=== PATIENT | male | born 1945 | race Caucasian/White ===

== ENCOUNTER 2017-09-16 17:41 | Observation (INO) | payer MEDICARE ==
[~2017-09-16] VITALS: Ht 172.7 cm; Wt 125.6 kg
[~2017-09-16 17:41] MED LIST: ECOT81TA2 PO; INDO50 PO; INDO50CA PO; LISI-363 PO; TAB-TAB PO
[2017-09-16 17:46] VITALS: BP 162/77; PULSE 98; RESP 18; TEMP 97.8; O2SAT 95
[2017-09-16] MEDS ORDERED: ASPI-183 PO (18:04)
[2017-09-16] MEDS ORDERED: LISI-515 PO (18:04)
[2017-09-16] MEDS ORDERED: INDO25CA PO (18:04)
[2017-09-16] MEDS ORDERED: MULT-65 PO (18:04)
[2017-09-16] MEDS ORDERED: TAMS0.4C4 PO (18:04)
[2017-09-16] MEDS ORDERED: FINA5TAB2 PO (18:04)
[2017-09-16] MEDS ORDERED: SODIUM CHLORIDE 0.9% FLUSH 10 ML FLUSH IVF PRN (18:15)
[2017-09-16 18:30] VITALS: O2SAT 94
--- NOTE | 2017-09-16 18:31 | PD ---
HPI Chief Complaint: GI Complaint Time Seen by Provider: 18:10 Travel History International Travel<30 days: No Contact w/Intl Traveler<30days: No Traveled to known affect area: No History of Present Illness HPI Patient gives a history of having upper abdominal pain has been intermittent over the past 10 days or so. However today at about 1230 or so he started having epigastric area pain sharp, 8 out of 10, fairly consistent nonradiating, associated with nausea but without any vomiting or diarrhea. There is no apparent alleviating or aggravating factors. Patient denies any associated factors such as fever, rash, headache, neck pain, chest pain, back pain, flank pain. No known drug allergy Past medical history significant for cataract removal bilaterally, CVA, atrial fibrillation, hypertension, cardiac ablation, hernia repair. PFSH Past Medical History Arthritis: Yes Atrial Fibrillation: Yes (Ablation ) Heart Rhythm Problems: Yes (a fib) Cancer: No Cardiovascular Problems: Yes Cerebrovascular Accident: Yes Diminished Hearing: No Endocrine: No Genitourinary: No Hypertension: Yes Immune Disorder: No Musculoskeletal: Yes Neurologic: No Psychiatric: No Reproductive: No Respiratory: No Tetanus Vaccination: > 5 Years Influenza Vaccination: No Past Surgical History Abdominal Surgery: No Cardiac Surgery: No Ear Surgery: No Endocrine Surgery: No Eye Surgery: Yes (CATARACT REMOVAL BILATERALLY) Genitourinary Surgery: No Gynecologic Surgery: No Oral Surgery: Yes (MAJOR ORAL SURGERY WITH A TRACHEOTOMY) Thoracic Surgery: No Other Surgery: Yes (CARDIAC ABLATION, HERNIA REPAIR) Social History Alcohol Use: Yes (Rare) Tobacco Use: No Substance Use: No Allergies-Medications (Allergen,Severity, Reaction): Coded Allergies: No Known Allergies (Unverified Adverse Reaction, Unknown, 09/16/17) Reported Meds & Prescriptions Reported Meds & Active Scripts Active Reported Tamsulosin (Tamsulosin HCl) 0.4 Mg Cap 0.4 Mg PO BID Finasteride 5 Mg Tab 5 Mg PO DAILY Do not crush. Multi-Vitamin Daily (Multiple Vitamin) 1 Tab Tab 1 Tab PO DAILY Lisinopril 20 Mg Tab 20 Mg PO BID Indomethacin 25 Mg Cap 25 Mg PO DAILY Take with food, milk, or antacids to decrease stomach adverse effects. Aspirin 325 Mg Tab 325 Mg PO DAILY Review of Systems General / Constitutional: No: Fever Eyes: No: Visual changes HENT: No: Headaches Cardiovascular: No: Chest Pain or Discomfort Respiratory: No: Shortness of Breath Gastrointestinal: Positive: Abdominal Pain Genitourinary: No: Dysuria Musculoskeletal: No: Pain Skin: No Rash Neurologic: No: Weakness Psychiatric: No: Depression Endocrine: No: Polydipsia Hematologic/Lymphatic: No: Easy Bruising Physical Exam Narrative GENERAL: SKIN: Warm and dry. HEAD: Atraumatic. Normocephalic. EYES: Pupils equal and round. No scleral icterus. No injection or drainage. ENT: No nasal bleeding or discharge. Mucous membranes pink and moist. NECK: Trachea midline. No JVD. CARDIOVASCULAR: Regular rate and rhythm. RESPIRATORY: No accessory muscle use. Clear to auscultation. Breath sounds equal bilaterally. GASTROINTESTINAL: Abdomen soft, tenderness to percussion to right upper epigastric and left upper quadrant. However no rebound/guarding/rigidity, abdomen is obese but nondistended. MUSCULOSKELETAL: Extremities without clubbing, cyanosis, or edema. No obvious deformities. NEUROLOGICAL: Awake and alert. No obvious cranial nerve deficits. Motor grossly within normal limits. Five out of 5 muscle strength in the arms and legs. Normal speech. PSYCHIATRIC: Appropriate mood and affect; insight and judgment normal. Data Data Last Documented VS Vital Signs Date Time Temp Pulse Resp B/P (MAP) Pulse Ox O2 Delivery O2 Flow Rate FiO2 09/16/17 18:30 94 Room Air 09/16/17 17:46 97.8 98 18 162/77 (105) Orders Orders Electrocardiogram (09/16/17 18:10) B-Type Natriuretic Peptide (09/16/17 18:10) Ckmb (Isoenzyme) Profile (09/16/17 18:10) Complete Blood Count With Diff (09/16/17 18:10) Comprehensive Metabolic Panel (09/16/17 18:10) Prothrombin Time / Inr (Pt) (09/16/17 18:10) Act Partial Throm Time (Ptt) (09/16/17 18:10) Troponin I (09/16/17 18:10) Lipase (09/16/17 18:10) Chest, Single Ap (09/16/17 18:10) Ecg Monitoring (09/16/17 18:10) Iv Access Insert/Monitor (09/16/17 18:10) Oximetry (09/16/17 18:10) Sodium Chloride 0.9% Flush (Ns Flush) (09/16/17 18:15) Ct Abd/Pel W Iv Contrast(Rout) (09/16/17 18:55) CKMB (09/16/17 18:30) CKMB% (09/16/17 18:30) Iohexol 350 Inj (Omnipaque 350 Inj) (09/16/17 20:06) Ckmb (Isoenzyme) Profile (09/16/17 20:14) Troponin I (09/16/17 20:14) NPO (09/16/17 20:40) Morphine Inj (Morphine Inj) (09/16/17 20:45) Ondansetron Inj (Zofran Inj) (09/16/17 20:45) Metronidazole 500 Mg Inj (Flagyl 500 Mg (09/16/17 20:45) Sodium Chlor 0.9% 1000 Ml Inj (Ns 1000 M (09/16/17 20:40) Piperacil-Tazo 3.375 Gm Premix (Zosyn 3. (09/16/17 20:45) Labs Laboratory Tests Test 09/16/17 18:30 09/16/17 20:24 White Blood Count 14.6 TH/MM3 Red Blood Count 4.98 MIL/MM3 Hemoglobin 15.1 GM/DL Hematocrit 46.2 % Mean Corpuscular Volume 92.8 FL Mean Corpuscular Hemoglobin 30.4 PG Mean Corpuscular Hemoglobin Concent 32.7 % Red Cell Distribution Width 12.4 % Platelet Count 215 TH/MM3 Mean Platelet Volume 7.6 FL Neutrophils (%) (Auto) 84.9 % Lymphocytes (%) (Auto) 3.5 % Monocytes (%) (Auto) 7.4 % Eosinophils (%) (Auto) 0.8 % Basophils (%) (Auto) 3.4 % Neutrophils # (Auto) 12.4 TH/MM3 Lymphocytes # (Auto) 0.5 TH/MM3 Monocytes # (Auto) 1.1 TH/MM3 Eosinophils # (Auto) 0.1 TH/MM3 Basophils # (Auto) 0.5 TH/MM3 CBC Comment AUTO DIFF Differential Total Cells Counted 100 Neutrophils % (Manual) 77 % Band Neutrophils % 18 % Lymphocytes % 2 % Monocytes % 3 % Neutrophils # (Manual) 13.9 TH/MM3 Differential Comment FINAL DIFF MANUAL Platelet Estimate NORMAL Platelet Morphology Comment NORMAL Red Cell Morphology Comment NORMAL Prothrombin Time 10.2 SEC Prothromb Time International Ratio 1.0 RATIO Activated Partial Thromboplast Time 28.1 SEC Blood Urea Nitrogen 28 MG/DL Creatinine 1.50 MG/DL Random Glucose 137 MG/DL Total Protein 7.0 GM/DL Albumin 3.6 GM/DL Calcium Level 8.8 MG/DL Alkaline Phosphatase 139 U/L Aspartate Amino Transf (AST/SGOT) 212 U/L Alanine Aminotransferase (ALT/SGPT) 281 U/L Total Bilirubin 1.2 MG/DL Sodium Level 140 MEQ/L Potassium Level 3.8 MEQ/L Chloride Level 106 MEQ/L Carbon Dioxide Level 28.2 MEQ/L Anion Gap 6 MEQ/L Estimat Glomerular Filtration Rate 46 ML/MIN Total Creatine Kinase 141 U/L 127 U/L Creatine Kinase MB 4.6 NG/ML Troponin I LESS THAN 0.02 NG/ML LESS THAN 0.02 NG/ML B-Type Natriuretic Peptide LESS THAN 2 PG/ML Lipase 98907 U/L MDM Medical Decision Making Medical Screen Exam Complete: Yes Emergency Medical Condition: Yes Medical Record Reviewed: Yes Interpretation(s) EKG shows sinus rhythm, 97 bpm, right bundle branch block, no evidence of sgarbossa's criteria present Differential Diagnosis Atypical STEMI versus pancreatitis versus hepatitis versus cholecystitis versus cholelithiasis Narrative Course CBC shows leukocytosis of 15,000 with 85% neutrophils and 18% bandemia Coagulation profile is within normal limits Patient's electrolytes are within normal limits however the patient's bilirubin is elevated at 1.2, AST is 212 ALT is 281 alk phos is 139 all elevated first set of cardiac enzymes are negative and lipase is elevated at 12,344 CT abdomen and pelvis shows the patient has acute pancreatitis/duodenitis, along with cholelithiasis however based on the CAT scan no evidence of cholecystitis.... Most likely based on the laboratory data and the finding of cholelithiasis this patient probably has pancreatitis secondary to cholelithiasis Physician Communication Physician Communication Call made out to GI on-call, Dr. ESTRADA TO MAKE AWARE, [facility] ADMIT [place] and order an MRCP to evaluate for stones Diagnosis Primary Impression: Acute gallstone pancreatitis Admitting Information Admitting Physician Requests: Admit Jaleel Saucedo MD Sep 16, 2017 18:31
[2017-09-16 18:41] LABS: AUTOMATED NEUTROPHIL # 12.4 TH/MM3 (1.8-7.7); BASOPHIL # 0.5 TH/MM3 (0-0.2); BASOPHIL % 3.4 % (0.0-2.0); EOSINOPHIL # 0.1 TH/MM3 (0-0.4); EOSINOPHIL % 0.8 % (0.0-4.0); HEMATOCRIT 46.2 % (39.0-51.0); HEMOGLOBIN 15.1 GM/DL (13.0-17.0); LYMPH % 3.5 % (9.0-44.0); LYMPHOCYTE # 0.5 TH/MM3 (1.0-4.8); MEAN CELL VOLUME 92.8 FL (80.0-100.0); MEAN CORPUSCULAR HEMOGLOBIN 30.4 PG (27.0-34.0); MEAN CORPUSCULAR HGB CONC 32.7 % (32.0-36.0); MEAN PLATELET VOLUME 7.6 FL (7.0-11.0); MONO % 7.4 % (0.0-8.0); MONOCYTE # 1.1 TH/MM3 (0-0.9); NEUT % 84.9 % (16.0-70.0); PLATELET COUNT 215 TH/MM3 (150-450); RED BLOOD COUNT 4.98 MIL/MM3 (4.50-5.90); RED CELL DISTRIBUTION WIDTH 12.4 % (11.6-17.2); WHITE BLOOD COUNT 14.6 TH/MM3 (4.0-11.0)
--- NOTE | 2017-09-16 18:48 | RADRPT ---
EXAM DATE/TIME: 09/16/2017 18:37 [facility] COMPARISON: CHEST SINGLE AP, September 12, 2014, 9:31. INDICATIONS : Chest pain. MEDICAL HISTORY : None. SURGICAL HISTORY : None. ENCOUNTER: Initial ACUITY: 1 day PAIN SCORE: 4/10 LOCATION: Bilateral chest FINDINGS: A single view of the chest demonstrates the lungs to be symmetrically aerated without evidence of mas s, infiltrate or effusion. The cardiomediastinal contours are unremarkable. Osseous structures are intact. CONCLUSION: No evidence of acute cardiopulmonary disease. Zoran Guerrero MD on September 16, 2017 at 18:45 Board Certified Radiologist. This report was verified electronically.
[2017-09-16 18:53] LABS: CHLORIDE 106 MEQ/L (98-107); SODIUM (NA) 140 MEQ/L (136-145)
[2017-09-16 18:57] LABS: CALCIUM 8.8 MG/DL (8.5-10.1); PROTHROMBIN TIME - PATIENT 10.2 SEC (9.8-11.6)
[2017-09-16 18:58] LABS: ALBUMIN 3.6 GM/DL (3.4-5.0); BICARBONATE 28.2 MEQ/L (21.0-32.0); BLOOD UREA NITROGEN 28 MG/DL (7-18); GLUCOSE,RANDOM 137 MG/DL (74-106)
[2017-09-16 19:01] LABS: ALT (GPT) 281 U/L (12-78); AST (GOT) 212 U/L (15-37); GLOMERULAR FILTRATION RATE 46 ML/MIN (>89)
[2017-09-16 19:03] LABS: TOTAL BILIRUBIN ADULT 1.2 MG/DL (0.2-1.0)
[2017-09-16 19:04] LABS: ALKALINE PHOSPHATASE 139 U/L (45-117)
[2017-09-16 19:05] LABS: BANDS 18 % (0-6); LYMPHOCYTES 2 % (9-44); MONOCYTES 3 % (0-8); NEUTROPHIL # MANUAL DIFF 13.9 TH/MM3 (1.8-7.7); POLYS (SEG NEUTROPHILS) 77 % (16-70)
[2017-09-16 19:06] LABS: TROPONIN I LESS THAN 0.02 NG/ML (0.02-0.05)
[2017-09-16] MEDS ORDERED: IOHEXOL 350 MG/ML 10 ML VIAL (for RAD DIAG) IVCONTRAST ONE (20:06)
--- NOTE | 2017-09-16 20:26 | RADRPT ---
EXAM DATE/TIME: 09/16/2017 19:46 [facility] COMPARISON: CT PULMONARY ANGIOGRAM, September 12, 2014, 10:34. INDICATIONS : Upper abdominal pain. IV CONTRAST: 90 cc Omnipaque 350 (iohexol) IV ORAL CONTRAST: No oral contrast ingested. RADIATION DOSE: 24.53 CTDIvol (mGy) MEDICAL HISTORY : Cardiovascular disease. Cerebrovascular disease. Hypertension. SURGICAL HISTORY : Orthopedic surgery. Hernia repair. Cardiac ablation. ENCOUNTER: Initial ACUITY: 1 day PAIN SCALE: 7/10 LOCATION: upper quadrant TECHNIQUE: Volumetric scanning of the abdomen and pelvis was performed. Using automated exposure control and ad justment of the mA and/or kV according to patient size, radiation dose was kept as low as reasonably achievable to obtain optimal diagnostic quality images. DICOM format image data is available electro nically for review and comparison. FINDINGS: There is edema around the pancreatic head and also the duodenum compatible with pancreatitis and/or d uodenitis. No organized or drainable fluid. Numerous stones are seen in the gallbladder ranging betwe en 5 and 18 mm in size. There is no duct stone or ductal dilatation. Liver is fatty infiltrated. Spleen and adrenal glands are normal. There are a few scattered benign cysts of both kidneys. No ston es or obstructive uropathy demonstrated. No obstruction or acute inflammatory changes are seen of the gastrointestinal tract. There is a left inguinal fat-containing hernia. Eventration of the right hemidiaphragm again noted. There is mild lung base atelectasis, mostly on th e left. CONCLUSION: 1. Uncomplicated acute pancreatitis/duodenitis. 2. Cholelithiasis without evidence of cholecystitis or biliary obstruction. No acute choledocholithia sis seen. 3. Fatty liver. Zoran Guerrero MD on September 16, 2017 at 20:20 Board Certified Radiologist. This report was verified electronically.
[2017-09-16] MEDS ORDERED: SODIUM CHLOR 0.9% 1000 ML INJ 1,000 ML IV SCH (20:40)
[2017-09-16] MEDS ORDERED: ONDANSETRON HCL 4 MG/2 ML VIAL IVP ONE (20:45)
[2017-09-16] MEDS ORDERED: metroNIDAZOLE 500 MG INJ 100 ML IV ONE (20:45)
[2017-09-16] MEDS ORDERED: PIPERACIL-TAZO 3.375 GM PREMIX 50 ML IV ONE (20:45)
[2017-09-16] MEDS ORDERED: MORPHINE SULFATE 4 MG/ML INJ IV PUSH ONE (20:45)
[2017-09-16 20:46] LABS: TROPONIN I LESS THAN 0.02 NG/ML (0.02-0.05)
[2017-09-16] MEDS ORDERED: NALOXONE HCL 0.4 MG/ML AMP IV PUSH PRN (21:30)
[2017-09-16] MEDS ORDERED: DEXTROSE 50% IN WATER 50 ML VIAL(D50) IV PUSH PRN (21:30)
[2017-09-16] MEDS ORDERED: GLUCAGON 1 MG/ML VIAL OTHER PRN (21:30)
[2017-09-16] MEDS ORDERED: LACTULOSE SYRUP 20 GM/30 ML CUP PO PRN (21:30)
[2017-09-16] MEDS ORDERED: MAGNESIUM HYDROXIDE SUSP 30 ML CUP PO PRN (21:30)
[2017-09-16] MEDS ORDERED: SENNOSIDES 8.6 MG TAB PO PRN (21:30)
[2017-09-16] MEDS ORDERED: BISACODYL 10 MG SUPP RECTAL PRN (21:30)
[2017-09-16] MEDS ORDERED: SODIUM CHLORIDE 0.9% FLUSH 10 ML FLUSH IV FLUSH PRN (21:30)
[2017-09-16] MEDS: SODIUM CHLOR 0.9% 1000 ML INJ 1,000 ML IV SCH (21:34)
[2017-09-16 21:35] VITALS: BP 131/67; PULSE 101; RESP 20; O2SAT 93
[2017-09-16] MEDS: MORPHINE SULFATE 2 MG/ML SYRINGE IV PUSH PRN (22:31)
[2017-09-16 22:35] VITALS: BP 109/58; PULSE 98; RESP 20; O2SAT 93
[2017-09-17] VITALS: BP 129/72; PULSE 90; RESP 22; TEMP 97.2; O2SAT 96
[2017-09-17] MEDS ORDERED: ONDANSETRON HCL 4 MG/2 ML VIAL IVP PRN
[2017-09-17 00:10] VITALS: BP 106/63; TEMP 99.1
[2017-09-17] MEDS: MORPHINE SULFATE 2 MG/ML SYRINGE IV PUSH PRN ×2 (03:52→09:38)
[2017-09-17] MEDS ORDERED: HYDROmorphone HCL PF 0.5 MG/0.5 ML SYRINGE IV PUSH ONE (04:45)
[2017-09-17] MEDS: SODIUM CHLOR 0.9% 1000 ML INJ 1,000 ML IV SCH ×4 (04:56→20:42)
[2017-09-17 05:31] VITALS: BP 129/72; PULSE 90; RESP 22; TEMP 97.2; O2SAT 96
[2017-09-17 05:57] LABS: AUTOMATED NEUTROPHIL # 9.8 TH/MM3 (1.8-7.7); BASOPHIL # 0.1 TH/MM3 (0-0.2); BASOPHIL % 0.7 % (0.0-2.0); EOSINOPHIL # 0.3 TH/MM3 (0-0.4); EOSINOPHIL % 2.4 % (0.0-4.0); HEMATOCRIT 41.9 % (39.0-51.0); HEMOGLOBIN 14.2 GM/DL (13.0-17.0); LYMPH % 4.3 % (9.0-44.0); LYMPHOCYTE # 0.5 TH/MM3 (1.0-4.8); MEAN CELL VOLUME 91.3 FL (80.0-100.0); MEAN CORPUSCULAR HEMOGLOBIN 30.9 PG (27.0-34.0); MEAN CORPUSCULAR HGB CONC 33.8 % (32.0-36.0); MEAN PLATELET VOLUME 7.6 FL (7.0-11.0); MONOCYTE # 0.9 TH/MM3 (0-0.9); NEUT % 84.6 % (16.0-70.0); PLATELET COUNT 208 TH/MM3 (150-450); RED BLOOD COUNT 4.59 MIL/MM3 (4.50-5.90); RED CELL DISTRIBUTION WIDTH 12.8 % (11.6-17.2); WHITE BLOOD COUNT 11.6 TH/MM3 (4.0-11.0)
[2017-09-17 06:27] LABS: CHLORIDE 107 MEQ/L (98-107); SODIUM (NA) 140 MEQ/L (136-145)
[2017-09-17 06:40] LABS: ALBUMIN 3.3 GM/DL (3.4-5.0); GLUCOSE,RANDOM 123 MG/DL (74-106)
[2017-09-17 06:41] LABS: BICARBONATE 30.1 MEQ/L (21.0-32.0); BLOOD UREA NITROGEN 24 MG/DL (7-18); CALCIUM 8.1 MG/DL (8.5-10.1)
[2017-09-17 06:43] LABS: ALT (GPT) 237 U/L (12-78); AST (GOT) 104 U/L (15-37); GLOMERULAR FILTRATION RATE 55 ML/MIN (>89)
[2017-09-17 06:45] LABS: TOTAL BILIRUBIN ADULT 1.2 MG/DL (0.2-1.0); TOTAL PROTEIN 6.4 GM/DL (6.4-8.2)
[2017-09-17 06:46] LABS: ALKALINE PHOSPHATASE 109 U/L (45-117)
[2017-09-17] MEDS: INSULIN ASPART SUPPLEMENTAL SCALE SQ SCH ×4 (07:33→20:39)
[2017-09-17 08:00] VITALS: BP 156/88; PULSE 110; RESP 20; TEMP 97.5; O2SAT 95
[2017-09-17] MEDS: SODIUM CHLORIDE 0.9% FLUSH 10 ML FLUSH IV FLUSH SCH ×2 (08:36→20:19)
[2017-09-17] MEDS: DOCUSATE SODIUM 50 MG/SENNA 8.6 MG TAB PO SCH ×2 (09:00→20:35)
[2017-09-17] MEDS ORDERED: HYDROmorphone HCL PF 0.5 MG/0.5 ML SYRINGE IV PUSH PRN (10:00)
--- NOTE | 2017-09-17 10:20 | HHI.HP ---
[facility] Justin Kaye MD Admission Diagnosis GALLSTONE PANCREATITIS Diagnoses: (1) Abdominal pain Diagnosis: Principal (2) Pancreatitis Diagnosis: Principal Chief Complaint: Abdominal pain Travel History International Travel<30 Days: No Contact w/Intl Traveler <30 Da: No Traveled to Known Affected Are: No History of Present Illness 71-year-old male with known history of hypertension, benign prostatic hypertrophy, history of atrial fibrillation status post ablation who presented to the emergency department because of abdominal pain. Patient states that his normal state of health until yesterday when he was driving around [employer] and approximately at 1230 he started developing pain in his upper abdomen which progressively got worse throughout the day. He did drive home and lay down without any improvement. He states that the pain is located in the epigastric region without any radiation to his back, flank, lower abdomen. He indicates that the pain was a 10/10 on a pain scale. He did have some nausea but without any vomiting. Denied any fever, chills, urinary symptoms, diarrhea, constipation. Patient came to emergency department and was found to have acute pancreatitis by laboratory studies and CT scan. Patient was recommended observation the hospital for further management. Review of Systems Gastrointestinal: COMPLAINS OF: Abdominal pain, Nausea Except as stated in HPI: all other systems reviewed are Neg Past Family Social History Past Medical History Hypertension History of atrial fibrillation status post ablation Benign prostatic hypertrophy Arthritis History of DVT History of CVA Past Surgical History Cardiac ablation for atrial fibrillation Bilateral hip replacement Right knee replacement Right inguinal hernia repair Lumbar spinal stenosis surgery Reported Medications Reported Meds & Active Scripts Active Reported Tamsulosin (Tamsulosin HCl) 0.4 Mg Cap 0.4 Mg PO BID Finasteride 5 Mg Tab 5 Mg PO DAILY Do not crush. Multi-Vitamin Daily (Multiple Vitamin) 1 Tab Tab 1 Tab PO DAILY Lisinopril 20 Mg Tab 20 Mg PO BID Indomethacin 25 Mg Cap 25 Mg PO DAILY Take with food, milk, or antacids to decrease stomach adverse effects. Aspirin 325 Mg Tab 325 Mg PO DAILY Allergies: Coded Allergies: No Known Allergies (Unverified Adverse Reaction, Unknown, 09/16/17) Family History Reviewed and significant for both mother and father with heart disease. No indication of any lung disease, kidney disease, cancer, seizure, stroke Social History Patient denies any tobacco or illicit drugs. Does drink wine occasionally. Denies any illicit drug Physical Exam Vital Signs Vital Signs Date Time Temp Pulse Resp B/P (MAP) Pulse Ox O2 Delivery O2 Flow Rate FiO2 09/17/17 09:44 17 09/17/17 08:00 97.5 110 20 156/88 (110) 95 09/17/17 05:31 97.2 90 22 129/72 (91) 96 09/17/17 00:10 99.1 94 20 106/63 (77) 96 Nasal Cannula 2.00 09/17/17 00:00 97.2 90 22 129/72 (91) 96 09/16/17 22:38 20 09/16/17 22:35 98 20 109/58 (75) 93 Nasal Cannula 2.00 09/16/17 21:35 101 20 131/67 (88) 93 Room Air 09/16/17 18:30 94 Room Air 09/16/17 17:46 97.8 98 18 162/77 (105) 95 Physical Exam GENERAL: Well-developed, well-nourished, in no acute distress. alert and orientated HEENT: Head is normocephalic without any lesions or masses noted. Facial features are symmetric. Eyes: Pupils equal round reactive to light. Extraocular muscles are intact. Conjunctivae were clear. Oropharyngeal: Pharynx without any erythema edema. Tongue is midline without deviation. Buccal mucosa is moist without any masses or lesions NECK: Supple without any masses. Trachea midline no deviation. No JVD, no bruits are appreciated CARDIAC: Regular rhythm, regular rate. S1/S2 are heard. No murmurs gallops or rubs. LUNGS: Clear to auscultation bilaterally. No wheeze, rhonchi or rales. No use of accessory muscles on inspiration or expiration. ABDOMEN: Soft, tenderness noted in the right upper quadrant and epigastric region. Nondistended. Bowel sounds heard in all 4 quadrants. No organomegaly or masses. Negative rebound, negative guarding EXTREMITIES: No edema, pulses are equal bilaterally. No cyanosis or clubbing NEUROLOGY: Mood and affect appear appropriate. Cranial nerves II through XII grossly intact. Muscle strength 5/5 in upper and lower extremities bilaterally. Deep tendon reflexes are 2+ in upper and lower extremities bilaterally. Laboratory Laboratory Tests Test 09/16/17 18:30 09/16/17 20:24 09/17/17 05:44 White Blood Count 14.6 11.6 Red Blood Count 4.98 4.59 Hemoglobin 15.1 14.2 Hematocrit 46.2 41.9 Mean Corpuscular Volume 92.8 91.3 Mean Corpuscular Hemoglobin 30.4 30.9 Mean Corpuscular Hemoglobin Concent 32.7 33.8 Red Cell Distribution Width 12.4 12.8 Platelet Count 215 208 Mean Platelet Volume 7.6 7.6 Neutrophils (%) (Auto) 84.9 84.6 Lymphocytes (%) (Auto) 3.5 4.3 Monocytes (%) (Auto) 7.4 8.0 Eosinophils (%) (Auto) 0.8 2.4 Basophils (%) (Auto) 3.4 0.7 Neutrophils # (Auto) 12.4 9.8 Lymphocytes # (Auto) 0.5 0.5 Monocytes # (Auto) 1.1 0.9 Eosinophils # (Auto) 0.1 0.3 Basophils # (Auto) 0.5 0.1 CBC Comment AUTO DIFF DIFF FINAL Differential Total Cells Counted 100 Neutrophils % (Manual) 77 Band Neutrophils % 18 Lymphocytes % 2 Monocytes % 3 Neutrophils # (Manual) 13.9 Differential Comment FINAL DIFF MANUAL Platelet Estimate NORMAL Platelet Morphology Comment NORMAL Red Cell Morphology Comment NORMAL Prothrombin Time 10.2 Prothromb Time International Ratio 1.0 Activated Partial Thromboplast Time 28.1 Blood Urea Nitrogen 28 24 Creatinine 1.50 1.30 Random Glucose 137 123 Total Protein 7.0 6.4 Albumin 3.6 3.3 Calcium Level 8.8 8.1 Alkaline Phosphatase 139 109 Aspartate Amino Transf (AST/SGOT) 212 104 Alanine Aminotransferase (ALT/SGPT) 281 237 Total Bilirubin 1.2 1.2 Sodium Level 140 140 Potassium Level 3.8 3.6 Chloride Level 106 107 Carbon Dioxide Level 28.2 30.1 Anion Gap 6 3 Estimat Glomerular Filtration Rate 46 55 Total Creatine Kinase 141 127 Creatine Kinase MB 4.6 Troponin I LESS THAN 0.02 LESS THAN 0.02 B-Type Natriuretic Peptide LESS THAN 2 Lipase 56328 3735 Result Diagram: 09/17/17 0544 09/17/17 0544 Imaging Last Impressions Abdomen/Pelvis CT 09/16/17 1855 Signed Impressions: Service Date/Time: Saturday, September 16, 2017 19:46 - CONCLUSION: 1. Uncomplicated acute pancreatitis/duodenitis. 2. Cholelithiasis without evidence of cholecystitis or biliary obstruction. No acute choledocholithiasis seen. 3. Fatty liver. Zoran Guerrero MD Chest X-Ray 09/16/17 1810 Signed Impressions: Service Date/Time: Saturday, September 16, 2017 18:37 - CONCLUSION: No evidence of acute cardiopulmonary disease. Zoran Guerrero MD Caprini VTE Risk Assessment Caprini VTE Risk Assessment: Mod/High Risk (score >= 2) Caprini Risk Assessment Model Point Value = 1 Point Value = 2 Point Value = 3 Point Value = 5 Age 41-60 Minor surgery BMI > 25 kg/m2 Swollen legs Varicose veins or History of unexplained or recurrent spontaneous Oral contraceptives or hormone replacement Sepsis (< 1 month) Serious lung disease, including pneumonia (< 1 month) Abnormal pulmonary function Acute myocardial infarction Congestive heart failure (< 1 month) History of inflammatory bowel disease Medical patient at bed rest Age 61-74 Arthroscopic surgery Major open surgery (> 45 min) Laparoscopic surgery (> 45 min) Malignancy Confined to bed (> 72 hours) Immobilizing plaster cast Central venous access Age >= 75 History of VTE Family history of VTE Factor V Leiden Prothrombin [id number] Lupus anticoagulant Anticardiolipin antibodies Elevated serum homocysteine Heparin-induced thrombocytopenia Other congenital or acquired thrombophilia Stroke (< 1 month) Elective arthroplasty Hip, pelvis, or leg fracture Acute spinal cord injury (< 1 month) Prophylaxis Regimen Total Risk Factor Score Risk Level Prophylaxis Regimen 0-1 Low Early ambulation 2 Moderate Order ONE of the following: *Sequential Compression Device (SCD) *Heparin 5000 units SQ BID 3-4 Higher Order ONE of the following medications: *Heparin 5000 units SQ TID *Enoxaparin/Lovenox 40 mg SQ daily (WT < 150 kg, CrCl > 30 mL/min) *Enoxaparin/Lovenox 30 mg SQ daily (WT < 150 kg, CrCl > 10-29 mL/min) *Enoxaparin/Lovenox 30 mg SQ BID (WT < 150 kg, CrCl > 30 mL/min) AND/OR *Sequential Compression Device (SCD) 5 or more Highest Order ONE of the following medications: *Heparin 5000 units SQ TID (Preferred with Epidurals) *Enoxaparin/Lovenox 40 mg SQ daily (WT < 150 kg, CrCl > 30 mL/min) *Enoxaparin/Lovenox 30 mg SQ daily (WT < 150 kg, CrCl > 10-29 mL/min) *Enoxaparin/Lovenox 30 mg SQ BID (WT < 150 kg, CrCl > 30 mL/min) AND *Sequential Compression Device (SCD) Assessment and Plan Assessment and Plan Acute pancreatitis, improving -Patient presented with abdominal pain, nausea -Laboratory studies and CT scan does confirm acute pancreatitis -Likely secondary to passed gallstone -Liver enzymes and lipase level are trending down nicely -Start clear liquid diet -Start pain control with Dilaudid, if patient tolerates diet can start p.o. pain medication for improved control -Supplier Quality Engineering Manager was consulted for recommendations -If patient continued to improve, anticipate discharge tomorrow Leukocytosis, resolved -Likely secondary to concentration secondary to mild dehydration Acute renal failure superimposed on chronic kidney disease stage II, improved -Continue IV fluids -Monitor renal functions -Avoid nephrotoxins Hypertension, benign prostatic hypertrophy -Continue home medications DVT prevention -Sequential compression devices Harley Phan Sep 17, 2017 10:20
[2017-09-17] MEDS: FINASTERIDE 5 MG TAB PO SCH (10:24)
[2017-09-17] MEDS: TAMSULOSIN HCL 0.4 MG CAP PO SCH ×2 (10:24→20:35)
[2017-09-17] MEDS: LISINOPRIL 20 MG TAB PO SCH ×2 (10:24→20:36)
[2017-09-17] MEDS ORDERED: ACETAMINOPHEN/HYDROcodone 325 MG/5 MG TAB PO PRN (14:15)
[2017-09-17] MEDS: ACETAMINOPHEN/HYDROcodone 325 MG/10 MG TAB PO PRN ×2 (15:07→20:41)
[2017-09-17 16:00] VITALS: BP 130/79; PULSE 89; RESP 20; TEMP 98.2; O2SAT 95
--- NOTE | 2017-09-17 17:22 | EKG ---
Date Performed: 09/16/2017 Time Performed: 18:22:21 PTAGE: 71 years EKG: Sinus rhythm RIGHT BUNDLE BRANCH BLOCK Consider INFERIOR MYOCARDIAL INFARCTION age indeterminate also left anetri or fascicular block. ABNORMAL ECG PREVIOUS TRACING : 09/12/2014 20.56 DOCTOR: Neo Peterson Interpretating Date/Time 09/17/2017 17:21:27
[2017-09-17 20:00] VITALS: BP 138/66; PULSE 84; RESP 22; TEMP 97; O2SAT 98
[2017-09-18] VITALS: BP 142/82; PULSE 83; RESP 22; TEMP 97; O2SAT 94
[2017-09-18] MEDS: ACETAMINOPHEN/HYDROcodone 325 MG/10 MG TAB PO PRN ×2 (05:56→09:59)
[2017-09-18 06:16] LABS: AUTOMATED NEUTROPHIL # 9.3 TH/MM3 (1.8-7.7); BASOPHIL # 0.1 TH/MM3 (0-0.2); BASOPHIL % 0.7 % (0.0-2.0); EOSINOPHIL # 0.4 TH/MM3 (0-0.4); EOSINOPHIL % 3.3 % (0.0-4.0); HEMATOCRIT 40.9 % (39.0-51.0); HEMOGLOBIN 13.9 GM/DL (13.0-17.0); LYMPH % 4.4 % (9.0-44.0); LYMPHOCYTE # 0.5 TH/MM3 (1.0-4.8); MEAN CELL VOLUME 91.9 FL (80.0-100.0); MEAN CORPUSCULAR HEMOGLOBIN 31.2 PG (27.0-34.0); MEAN CORPUSCULAR HGB CONC 33.9 % (32.0-36.0); MEAN PLATELET VOLUME 8.2 FL (7.0-11.0); MONO % 8.1 % (0.0-8.0); MONOCYTE # 0.9 TH/MM3 (0-0.9); NEUT % 83.5 % (16.0-70.0); PLATELET COUNT 171 TH/MM3 (150-450); RED BLOOD COUNT 4.46 MIL/MM3 (4.50-5.90); RED CELL DISTRIBUTION WIDTH 12.8 % (11.6-17.2); WHITE BLOOD COUNT 11.2 TH/MM3 (4.0-11.0)
[2017-09-18 06:23] LABS: CHLORIDE 105 MEQ/L (98-107); SODIUM (NA) 139 MEQ/L (136-145)
[2017-09-18 06:26] LABS: CALCIUM 8.4 MG/DL (8.5-10.1)
[2017-09-18 06:27] LABS: BICARBONATE 28.2 MEQ/L (21.0-32.0); BLOOD UREA NITROGEN 14 MG/DL (7-18); GLUCOSE,RANDOM 105 MG/DL (74-106)
[2017-09-18 06:30] LABS: ALT (GPT) 153 U/L (12-78); AST (GOT) 40 U/L (15-37); CREATININE 0.89 MG/DL (0.60-1.30); GLOMERULAR FILTRATION RATE 85 ML/MIN (>89)
[2017-09-18 06:31] LABS: TOTAL BILIRUBIN ADULT 1.2 MG/DL (0.2-1.0); TOTAL PROTEIN 6.4 GM/DL (6.4-8.2)
[2017-09-18 06:32] LABS: ALKALINE PHOSPHATASE 86 U/L (45-117)
--- NOTE | 2017-09-18 07:34 | HHI.PR ---
Subjective Remarks 71-year-old male who is seen in follow-up today on gallstone pancreatitis. Patient is doing much better. He is tolerating liquids. Advancing diet at this time. Patient states the pain is much improved only required 1 dose of Dilaudid since yesterday. Patient is getting up and moving around. Denies any new complaints. Vital signs are stable. Remains afebrile Objective Vitals Vital Signs Date Time Temp Pulse Resp B/P (MAP) Pulse Ox O2 Delivery O2 Flow Rate FiO2 09/18/17 00:00 97.0 83 22 142/82 (102) 94 09/17/17 20:00 97.0 84 22 138/66 (90) 98 09/17/17 16:07 18 09/17/17 16:00 98.2 89 20 130/79 (96) 95 09/17/17 09:44 17 09/17/17 08:00 97.5 110 20 156/88 (110) 95 I/O 09/17/17 09/17/17 09/17/17 09/18/17 09/18/17 09/18/17 07:00 15:00 23:00 07:00 15:00 23:00 Intake Total 1450 ml 850 ml Output Total 400 ml Balance 1450 ml 850 ml -400 ml Intake Oral 850 ml IV Total 1450 ml Output Urine Total 400 ml # Voids 2 6 2 # Bowel Movements 0 0 1 0 Result Diagram: 09/18/17 0455 09/18/17 0455 Imaging Last Impressions Abdomen/Pelvis CT 09/16/17 1855 Signed Impressions: Service Date/Time: Saturday, September 16, 2017 19:46 - CONCLUSION: 1. Uncomplicated acute pancreatitis/duodenitis. 2. Cholelithiasis without evidence of cholecystitis or biliary obstruction. No acute choledocholithiasis seen. 3. Fatty liver. Zoran Guerrero MD Chest X-Ray 09/16/17 1810 Signed Impressions: Service Date/Time: Saturday, September 16, 2017 18:37 - CONCLUSION: No evidence of acute cardiopulmonary disease. Zoran Guerrero MD Objective Remarks GENERAL: Well-developed, well-nourished, in no acute distress. alert and orientated HEENT: Head is normocephalic without any lesions or masses noted. Facial features are symmetric. Eyes: Extraocular muscles are intact. Conjunctivae were clear. NECK: Supple without any masses. Trachea midline no deviation. No JVD, CARDIAC: Regular rhythm, regular rate. S1/S2 are heard. No murmurs gallops or rubs. LUNGS: Clear to auscultation bilaterally. No wheeze, rhonchi or rales. No use of accessory muscles on inspiration or expiration. ABDOMEN: Soft, nontender. Nondistended. Bowel sounds heard in all 4 quadrants. No organomegaly or masses. Negative rebound, negative guarding EXTREMITIES: No edema, pulses are equal bilaterally. No cyanosis or clubbing NEUROLOGY: Mood and affect appear appropriate. Cranial nerves II through XII grossly intact. Moving all extremities, speech is clear Urinary Catheter: No Vascular Central Line Catheter: No A/P Assessment and Plan Acute pancreatitis, improving -Patient presented with abdominal pain, nausea -Laboratory studies and CT scan does confirm acute pancreatitis -Likely secondary to passed gallstone -Liver enzymes and lipase level are continue to trend down nicely -Advance to full liquid, tolerating diet -pain control with Dilaudid, if patient tolerates diet can start p.o. pain medication for improved control -Senior Product Engineer was consulted for recommendations Leukocytosis, resolved -Likely secondary to concentration secondary to mild dehydration Acute renal failure superimposed on chronic kidney disease stage II, improved -Continue IV fluids -Monitor renal functions -Avoid nephrotoxins Hypertension, benign prostatic hypertrophy -Continue home medications DVT prevention -Sequential compression devices Discharge Planning Discharge home in stable condition Activity: Ad kaila. Diet: Healthy heart diet Medication per medication reconciliation Follow-up with primary medical doctor in 1 week, Dr. Snyder in 2 weeks Harley Phan Sep 18, 2017 07:34
[2017-09-18] MEDS ORDERED: HYDR-3583 PO (07:37)
--- NOTE | 2017-09-18 07:37 | HHI.DCPOC ---
Discharge Care Plan Diagnosis: (1) Pancreatitis Goals to Promote Your Health * To prevent worsening of your condition and complications * To maintain your health at the optimal level Directions to Meet Your Goals Take your medications as prescribed Follow your dietary instruction Follow activity as directed Keep your appointments as scheduled Take your immunizations and boosters as scheduled If your symptoms worsen call your PCP, if no PCP go to Urgent Care Center or Emergency Room Smoking is Dangerous to Your Health. Avoid second hand smoke Call the 24-hour hour crisis hotline for domestic abuse at Harley Phan Sep 18, 2017 07:37
[2017-09-18 07:51] VITALS: BP 121/89; PULSE 85; RESP 18; TEMP 97.9; O2SAT 94
[2017-09-18] MEDS: INSULIN ASPART SUPPLEMENTAL SCALE SQ SCH (08:00)
[2017-09-18] MEDS: LISINOPRIL 20 MG TAB PO SCH (09:00)
[2017-09-18] MEDS ORDERED: ASPIRIN 325 MG TAB PO SCH (09:00)
[2017-09-18] MEDS: DOCUSATE SODIUM 50 MG/SENNA 8.6 MG TAB PO SCH (09:59)
[2017-09-18] MEDS: TAMSULOSIN HCL 0.4 MG CAP PO SCH (09:59)
[2017-09-18] MEDS: FINASTERIDE 5 MG TAB PO SCH (09:59)
[2017-09-18] MEDS: SODIUM CHLORIDE 0.9% FLUSH 10 ML FLUSH IV FLUSH SCH (10:03)
--- NOTE | 2017-09-18 18:53 | MB ---
cc: Teresa Enamorado MD DATE: 09/17/2017 REASON FOR REFERRAL: Abdominal pain and pancreatitis. Thank you for the consultation. HISTORY OF PRESENT ILLNESS: A 71-year-old gentleman who has been doing well. He has a few medical problems. He started having abdominal pain for a few days and he came to the emergency room because the pain became very bad in the mid epigastric area, radiating to the sides and to the back, 10/10 and some nausea, no vomiting. The patient denies any other problems. He does not think it is related to food. He has no other GI symptoms such as constipation, diarrhea. His symptoms started to subside with pain medications. He had a CT scan which showed a finding consistent with pancreatitis. REVIEW OF SYSTEMS: All 12-point negative except in HPI. MEDICATIONS: Reviewed in the chart. ALLERGIES: NO KNOWN DRUG ALLERGIES. FAMILY HISTORY: Significant for coronary artery disease, lung disease, kidney disease, cancer, seizure disorder and stroke. SOCIAL HISTORY: The patient denied tobacco or drugs. He used to drinks alcohol on a rare occasion. PAST MEDICAL AND SURGICAL HISTORY: Significant for hypertension, arthritis, history of CVA, DVT, BPH, atrial fibrillation with ablation, neck surgery, cardiac ablation, bilateral hip replacement, right knee replacement, inguinal hernia repair on the right side, surgery for spinal stenosis. PHYSICAL EXAMINATION: GENERAL: Obese, well-developed patient. Alert, oriented, in no acute distress at this time. VITAL SIGNS: Stable. No fever. HEENT: Pupils round, reactive to light. NECK: Supple. LUNGS: Clear to auscultation and percussion. CARDIAC: Regular rate and rhythm. No murmur or gallop. ABDOMEN: Soft, moderate tenderness in the right upper quadrant and epigastric area, radiating to the back. Positive bowel sounds. Unable to appreciate hepatosplenomegaly. The patient is morbidly obese. NEUROLOGIC: Alert, oriented, in no acute deficits. PSYCHOLOGIC: Appropriate. SKIN: Clear. No jaundice. LABORATORY DATA: White count 11.6, hemoglobin 14.2, platelet 208. INR of 1.0. BUN 24, creatinine 1.3, total bilirubin 1.2, AST 104, ALT 237, albumin 3.3. Lipase 3335; yesterday was 12,344. IMAGING STUDIES: Abdominal CT scan showed pancreatitis and duodenitis. Cholelithiasis. No evidence of cholecystitis or biliary obstruction. No choledocholithiasis. ASSESSMENT AND PLAN: A 71-year-old gentleman who has abdominal pain, most likely biliary pancreatitis. He could have passed a stone. His liver enzymes are moderately elevated. His lipase is improving and the CT scan did not show common bile duct obstruction. Most likely he passed a stone, so we will continue supportive care, pain management, monitoring liver function test. If liver function tests go up, the patient will need MRCP. Surgical consult should be considered for possible laparoscopy with goal of cholecystectomy. This could be done as an inpatient or outpatient. We will defer that decision to the surgeon. Pain control. Hydration. Further plan depends on how the patient is doing. MD COLE Wallace/AFSHIN , 06:26 PM , 06:52 PM
== END 2017-09-18 12:02 | disposition home or self-care (01) ==
LOC: PHEFT 17:41 → PHEDA 21:22 → PH3A 09-17 00:20
PROVIDERS: ADMIT Hospitalist; ATTEND Hospitalist
DX: K85.90 Acute pancreatitis without necrosis or infection, unspecified (principal); K85.10 Biliary acute pancreatitis without necrosis or infection; N17.9 Acute kidney failure, unspecified; K80.20 Calculus of gallbladder without cholecystitis without obstruction; E86.0 Dehydration; K29.80 Duodenitis without bleeding; I48.91 Unspecified atrial fibrillation; I12.9 Hypertensive chronic kidney disease with stage 1 through stage 4 chronic kidney disease, or unspecified chronic kidney disease; N18.2 Chronic kidney disease, stage 2 (mild); R11.0 Nausea; D72.829 Elevated white blood cell count, unspecified; N40.0 Benign prostatic hyperplasia without lower urinary tract symptoms; R94.31 Abnormal electrocardiogram [ECG] [EKG]; Z86.73 Personal history of transient ischemic attack (TIA), and cerebral infarction without residual deficits; Z86.718 Personal history of other venous thrombosis and embolism; Z96.643 Presence of artificial hip joint, bilateral; Z96.651 Presence of right artificial knee joint
CPT/HCPCS: 71045; 74177; 80053; 82550; 82552; 82948; 83690; 83880; 84484; 85007; 85025; 85027; 85610; 85730; 93005; 96361; 96365; 96368; 96375; 96376; 99285; G0378; J1170; J2270; J2405; J2543; J7030; Q9967

== ENCOUNTER 2017-09-21 22:38 | Inpatient (IN) | payer MEDICARE ==
[~2017-09-21] VITALS: Ht 172.7 cm; Wt 130.0 kg
[~2017-09-21 22:38] MED LIST changes: +ASPI-183 PO; -ECOT81TA2 PO; +FINA5TAB2 PO; +HYDR-3583 PO; +INDO25CA PO; -INDO50 PO; -INDO50CA PO; -LISI-363 PO; +LISI-515 PO; +MULT-65 PO; -TAB-TAB PO; +TAMS0.4C4 PO
[2017-09-21] MEDS ORDERED: SODIUM CHLOR 0.9% 1000 ML INJ 1,000 ML IV ONE (22:45)
[2017-09-21 22:50] VITALS: BP 126/72; PULSE 126; RESP 20; TEMP 98.6; O2SAT 95
[2017-09-21 22:56] VITALS: RESP 20; O2SAT 95
[2017-09-21 23:03] LABS: AUTOMATED NEUTROPHIL # 9.4 TH/MM3 (1.8-7.7); BASOPHIL # 0.1 TH/MM3 (0-0.2); BASOPHIL % 0.7 % (0.0-2.0); EOSINOPHIL # 0.1 TH/MM3 (0-0.4); EOSINOPHIL % 0.6 % (0.0-4.0); HEMATOCRIT 41.2 % (39.0-51.0); HEMOGLOBIN 13.8 GM/DL (13.0-17.0); LYMPH % 1.6 % (9.0-44.0); LYMPHOCYTE # 0.2 TH/MM3 (1.0-4.8); MEAN CELL VOLUME 90.7 FL (80.0-100.0); MEAN CORPUSCULAR HEMOGLOBIN 30.3 PG (27.0-34.0); MEAN CORPUSCULAR HGB CONC 33.4 % (32.0-36.0); MEAN PLATELET VOLUME 7.4 FL (7.0-11.0); MONO % 4.2 % (0.0-8.0); MONOCYTE # 0.4 TH/MM3 (0-0.9); NEUT % 92.9 % (16.0-70.0); PLATELET COUNT 203 TH/MM3 (150-450); RED BLOOD COUNT 4.55 MIL/MM3 (4.50-5.90); RED CELL DISTRIBUTION WIDTH 12.2 % (11.6-17.2); WHITE BLOOD COUNT 10.2 TH/MM3 (4.0-11.0)
--- NOTE | 2017-09-21 23:11 | RADRPT ---
EXAM DATE/TIME: 09/21/2017 22:52 [facility] COMPARISON: CHEST SINGLE AP, September 16, 2017, 18:37. INDICATIONS : Shortness of breath. MEDICAL HISTORY : None. SURGICAL HISTORY : None. ENCOUNTER: Initial ACUITY: 1 day PAIN SCORE: 0/10 LOCATION: Bilateral chest FINDINGS: A single view of the chest demonstrates stable elevation of the right hemidiaphragm. Lungs are otherw ise clear. Heart size is normal. Osseous structures are intact. CONCLUSION: Stable examination with no acute cardiopulmonary process Hipolito Michael MD on September 21, 2017 at 23:09 Board Certified Radiologist. This report was verified electronically.
[2017-09-21 23:14] LABS: CHLORIDE 101 MEQ/L (98-107); SODIUM (NA) 135 MEQ/L (136-145)
--- NOTE | 2017-09-21 23:15 | PD ---
HPI Chief Complaint: General Weakness Time Seen by Provider: 22:43 Travel History International Travel<30 days: No Contact w/Intl Traveler<30days: No Traveled to known affect area: No History of Present Illness HPI 71-year-old male complaining of feeling shaky, chills, generalized malaise and weakness. Patient was admitted to [facility] September 16, 2017 and discharged September 18, 2017 with diagnosis of acute gallstone pancreatitis. GI consultation obtained. Patient improved without intervention. Patient was discharged home with prescription for Dilaudid for pain. Patient took Dilaudid several days ago but not since then. Patient states that he has been doing well at home. Patient started having shaking chills this evening. Patient denies any headache. Patient denies any coughing congestion. Patient denies any chest pain or shortness of breath. Patient denies abdominal pain. Patient denies any nausea vomiting diarrhea. Patient complains of constipation. Patient denies any dysuria or frequency. Patient denies any back pain. Patient denies any fever. EMS was called. Patient was found to be hypotensive. Patient was given IV fluid on the way to the ED. Patient states that he is feeling better now. PFSH Past Medical History Arthritis: Yes Atrial Fibrillation: Yes (Ablation ) Heart Rhythm Problems: Yes (a fib) Cancer: No Cardiovascular Problems: Yes High Cholesterol: Yes Cerebrovascular Accident: Yes Diminished Hearing: No Endocrine: No Gastrointestinal Disorders: No Genitourinary: No Hypertension: Yes Immune Disorder: No Implanted Vascular Access Dvce: No Musculoskeletal: Yes Neurologic: Yes Psychiatric: No Reproductive: No Respiratory: No Sleep Apnea: Yes Tetanus Vaccination: Unknown Influenza Vaccination: No Past Surgical History Abdominal Surgery: Yes (HERNIA REPAIR) Cardiac Surgery: Yes (CARDIAC ABLATION) Ear Surgery: No Endocrine Surgery: No Eye Surgery: Yes (CATARACT REMOVAL BILATERALLY) Genitourinary Surgery: No Gynecologic Surgery: No Neurologic Surgery: No Oral Surgery: Yes (MAJOR ORAL SURGERY WITH A TRACHEOTOMY) Thoracic Surgery: No Other Surgery: Yes (CARDIAC ABLATION, HERNIA REPAIR) Social History Alcohol Use: Yes (Rare) Tobacco Use: No Substance Use: No Allergies-Medications (Allergen,Severity, Reaction): Coded Allergies: No Known Allergies (Unverified Adverse Reaction, Unknown, 09/16/17) Reported Meds & Prescriptions Reported Meds & Active Scripts Active Hydrocodone-Acetamin 10-325 mg (Hydrocodone/Acetaminophen) 10 Mg-325 Mg Tablet 1 Tab PO Q6H PRN 3 Days Reported Tamsulosin (Tamsulosin HCl) 0.4 Mg Cap 0.4 Mg PO BID Finasteride 5 Mg Tab 5 Mg PO DAILY Do not crush. Multi-Vitamin Daily (Multiple Vitamin) 1 Tab Tab 1 Tab PO DAILY Lisinopril 20 Mg Tab 20 Mg PO BID Indomethacin 25 Mg Cap 25 Mg PO DAILY Take with food, milk, or antacids to decrease stomach adverse effects. Aspirin 325 Mg Tab 325 Mg PO DAILY Review of Systems General / Constitutional: Positive: Chills, No: Fever Eyes: No: Visual changes HENT: No: Headaches Cardiovascular: No: Chest Pain or Discomfort Respiratory: No: Shortness of Breath Gastrointestinal: No: Abdominal Pain Genitourinary: No: Dysuria Musculoskeletal: No: Pain Skin: No Rash Neurologic: No: Weakness Psychiatric: No: Depression Endocrine: No: Polydipsia Hematologic/Lymphatic: No: Easy Bruising Physical Exam Narrative GENERAL: Well-nourished, well-developed patient. SKIN: Focused skin assessment warm/dry. HEAD: Normocephalic. EYES: No scleral icterus. No injection or drainage. NECK: Supple, trachea midline. No JVD or lymphadenopathy. CARDIOVASCULAR: Mild tachycardia rate and rhythm without murmurs, gallops, or rubs. RESPIRATORY: Breath sounds equal bilaterally. No accessory muscle use. GASTROINTESTINAL: Abdomen soft, nondistended. Patient has mild to moderate tenderness on palpation right upper quadrant of the abdomen. No rebound tenderness. No mass. MUSCULOSKELETAL: No cyanosis, or edema. BACK: Nontender without obvious deformity. No CVA tenderness. Neurologic exam: Patient is awake alert oriented 3. Patient moves all extremity well. No obvious focal neurological deficit. Data Data Last Documented VS Vital Signs Date Time Temp Pulse Resp B/P (MAP) Pulse Ox O2 Delivery O2 Flow Rate FiO2 09/21/17 22:56 20 95 Nasal Cannula 3.00 09/21/17 22:53 126 09/21/17 22:50 98.6 126/72 (90) Orders Orders Electrocardiogram (09/21/17 22:45) Complete Blood Count With Diff (09/21/17 22:45) Comprehensive Metabolic Panel (09/21/17 22:45) Creatine Kinase (Cpk) (09/21/17 22:45) Troponin I (09/21/17 22:45) Prothrombin Time / Inr (Pt) (09/21/17 22:45) Act Partial Throm Time (Ptt) (09/21/17 22:45) Lipase (09/21/17 22:45) Urinalysis - C+S If Indicated (09/21/17 22:45) Influenzae A/B Antigen (09/21/17 22:45) Chest, Single Ap (09/21/17 22:45) Iv Access Insert/Monitor (09/21/17 22:45) Ecg Monitoring (09/21/17 22:45) Oximetry (09/21/17 22:45) Sodium Chlor 0.9% 1000 Ml Inj (Ns 1000 M (09/21/17 22:45) Blood Culture (09/21/17 22:56) Lactic Acid (09/21/17 22:56) CKMB (09/21/17 22:50) CKMB% (09/21/17 22:50) Lidocaine Pf 1% Inj (Xylocaine-Mpf 1% In (09/22/17 00:00) Norepinephrine-Dextrose Drip (Levophed-D (09/22/17 00:15) Terbutaline Inj (Brethine Inj) (09/22/17 00:15) Sodium Chlor 0.9% 1000 Ml Inj (Ns 1000 M (09/22/17 00:15) Piperacil-Tazo 3.375 Gm Premix (Zosyn 3. (09/22/17 00:30) Vancomycin Inj (Vancomycin Inj) (09/22/17 00:30) Sodium Chlor 0.9% 1000 Ml Inj (Ns 1000 M (09/22/17 00:30) Sodium Chlor 0.9% 1000 Ml Inj (Ns 1000 M (09/22/17 00:30) Ct Abd/Pel W Iv Contrast(Rout) (09/22/17 00:23) Admit Order (Ed Use Only) (09/22/17 00:28) Labs Laboratory Tests Test 09/21/17 22:50 White Blood Count 10.2 TH/MM3 Red Blood Count 4.55 MIL/MM3 Hemoglobin 13.8 GM/DL Hematocrit 41.2 % Mean Corpuscular Volume 90.7 FL Mean Corpuscular Hemoglobin 30.3 PG Mean Corpuscular Hemoglobin Concent 33.4 % Red Cell Distribution Width 12.2 % Platelet Count 203 TH/MM3 Mean Platelet Volume 7.4 FL Neutrophils (%) (Auto) 92.9 % Lymphocytes (%) (Auto) 1.6 % Monocytes (%) (Auto) 4.2 % Eosinophils (%) (Auto) 0.6 % Basophils (%) (Auto) 0.7 % Neutrophils # (Auto) 9.4 TH/MM3 Lymphocytes # (Auto) 0.2 TH/MM3 Monocytes # (Auto) 0.4 TH/MM3 Eosinophils # (Auto) 0.1 TH/MM3 Basophils # (Auto) 0.1 TH/MM3 CBC Comment DIFF FINAL Differential Comment Prothrombin Time 12.0 SEC Prothromb Time International Ratio 1.2 RATIO Activated Partial Thromboplast Time 30.3 SEC Blood Urea Nitrogen 27 MG/DL Creatinine 1.60 MG/DL Random Glucose 129 MG/DL Total Protein 6.7 GM/DL Albumin 2.6 GM/DL Calcium Level 8.5 MG/DL Alkaline Phosphatase 221 U/L Aspartate Amino Transf (AST/SGOT) 71 U/L Alanine Aminotransferase (ALT/SGPT) 178 U/L Total Bilirubin 2.0 MG/DL Sodium Level 135 MEQ/L Potassium Level 3.7 MEQ/L Chloride Level 101 MEQ/L Carbon Dioxide Level 24.4 MEQ/L Anion Gap 10 MEQ/L Estimat Glomerular Filtration Rate 43 ML/MIN Lactic Acid Level 1.2 mmol/L Total Creatine Kinase 318 U/L Creatine Kinase MB 1.7 NG/ML Creatine Kinase MB % 0.5 % Troponin I 0.07 NG/ML Lipase 328 U/L MDM Medical Decision Making Medical Screen Exam Complete: Yes Emergency Medical Condition: Yes Interpretation(s) Last Impressions Chest X-Ray 09/21/171 Signed Impressions: Service Date/Time: Thursday, September 21, 2017 22:52 - CONCLUSION: Stable examination with no acute cardiopulmonary process Hipolito Michael MD 12:14 AM. CBC WBC 10.2. 92 neutrophil. Sodium 135. BUN 27. Creatinine 1.60. GFR 43. Lactic acid 1.2. Total bili 2.0. AST 71. ALT 178. Alkaline phosphatase 221. Troponin 0 0.07. Differential Diagnosis Differential diagnosis including vasovagal reaction, viral syndrome, sepsis. Narrative Course 71-year-old male with shaking chills tonight. Patient had transient hypotension. Normal saline solution 1 L IV bolus. Repeat normal saline solution 1 L IV bolus. Repeat normal saline solution 1 L IV bolus. Total 3 L IV bolus. Levophed as needed to keep MAP above 65. Zosyn 3.375 g IV. Vancomycin 1 g IV. Normal saline solution 1 25 cc an hour. Critical Care Narrative Aggregate critical care time was 60 minutes. Time to perform other separately billable procedures was not included in the critical care time. My time did not include minutes spent treating any other patients simultaneously or on activities that did not directly contribute to the patient's treatment. The services I provided to this patient were to treat and/or prevent clinically significant deterioration that could result in: I provided critical care services requiring my management, as noted below: Chart data review, documentation time, medication orders and management, vital sign assessments/reviewing monitor data, ordering and reviewing lab tests, ordering and interpreting/reviewing x-rays and diagnostic studies, care of the patient and discussion of the patient with the admitting physicians. Procedures Procedure Narrative CENTRAL VENOUS LINE: The site was prepped with Betadine and sterilely draped. It was infiltrated with 1% lidocaine plain. The deep vein was cannulated using normal Seldinger technique. A triple lumen central line was placed in the right femoral vein site and secured with simple interrupted suture. The site was sterilely dressed. The patient tolerated the procedure well. Diagnosis Primary Impression: Septic shock Additional Impression: Acute cholecystitis Admitting Information Admitting Physician Requests: Thomas Pathak MD Sep 21, 2017 23:15
[2017-09-21 23:17] LABS: CALCIUM 8.5 MG/DL (8.5-10.1)
[2017-09-21 23:18] LABS: ALBUMIN 2.6 GM/DL (3.4-5.0); BICARBONATE 24.4 MEQ/L (21.0-32.0); GLUCOSE,RANDOM 129 MG/DL (74-106)
[2017-09-21 23:19] LABS: INTERNATIONAL NORMALIZED RATIO 1.2 RATIO
[2017-09-21 23:29] LABS: ALKALINE PHOSPHATASE 221 U/L (45-117); ALT (GPT) 178 U/L (12-78); AST (GOT) 71 U/L (15-37); BLOOD UREA NITROGEN 27 MG/DL (7-18); GLOMERULAR FILTRATION RATE 43 ML/MIN (>89); TOTAL PROTEIN 6.7 GM/DL (6.4-8.2); TROPONIN I 0.07 NG/ML (0.02-0.05)
[2017-09-22] VITALS (17 sets, daily range): BP systolic 83–126; BP diastolic 58–82; PULSE 72–110; RESP 17–22; TEMP 97.6–98.2; O2SAT 95–100
[2017-09-22] MEDS ORDERED: LIDOCAINE HCL 1% PF 30 ML VIAL ONE
[2017-09-22] MEDS ORDERED: NOREPINEPHRINE-DEXTROSE DRIP 250 ML IV PRN (00:15)
[2017-09-22] MEDS ORDERED: TERBUTALINE INJ 1 MG/ML AMP SQ PRN (00:15)
[2017-09-22] MEDS ORDERED: SODIUM CHLOR 0.9% 1000 ML INJ 1,000 ML IV ONE ×3 (00:15→06:45)
[2017-09-22] MEDS ORDERED: VANCOMYCIN INJ 1,000 MG in SODIUM CHLOR 0.9% 250 ML INJ 250 ML IV ONE ×2 (00:30→07:00)
[2017-09-22] MEDS ORDERED: PIPERACIL-TAZO 3.375 GM PREMIX 50 ML IV ONE (00:30)
[2017-09-22] MEDS: SODIUM CHLOR 0.9% 1000 ML INJ 1,000 ML IV SCH ×3 (00:48→16:08)
[2017-09-22] MEDS ORDERED: IOHEXOL 350 MG/ML 10 ML VIAL (for RAD DIAG) IVCONTRAST ONE (01:03)
--- NOTE | 2017-09-22 01:28 | RADRPT ---
EXAM DATE/TIME: 09/22/2017 00:47 [facility] COMPARISON: CT ABDOMEN & PELVIS W CONTRAST, September 16, 2017, 19:46. INDICATIONS : Right upper quadrant pain. Fever. Weakness. IV CONTRAST: 75 cc Omnipaque 350 (iohexol) IV ORAL CONTRAST: No oral contrast ingested. RADIATION DOSE: 22.43 CTDIvol (mGy) MEDICAL HISTORY : Cardiovascular disease. Pancreatitis. Cholelithiasis. SURGICAL HISTORY : Hernia repair. ENCOUNTER: Initial ACUITY: 1 day PAIN SCALE: 2/10 LOCATION: Right upper quadrant TECHNIQUE: Volumetric scanning of the abdomen and pelvis was performed. Using automated exposure control and ad justment of the mA and/or kV according to patient size, radiation dose was kept as low as reasonably achievable to obtain optimal diagnostic quality images. DICOM format image data is available electro nically for review and comparison. FINDINGS: LOWER LUNGS: Mild bibasilar atelectatic changes. No confluent infiltrate LIVER: Decreased hepatic density characteristic of fatty infiltration. There is no dilation of the biliary tree. Multiple rim calcified gallstones. There is no gallbladder wall thickening and pericholecystic stranding. SPLEEN: Normal size without lesion. PANCREAS: Peripancreatic inflammatory changes seen previously show interval improvement but there is still some inflammatory stranding at the root of the mesentery, particularly around the celiac axis. KIDNEYS: Normal in size and shape. There is no mass, stone or hydronephrosis. Bilateral renal cortical cysts ADRENAL GLANDS: Within normal limits. VASCULAR: There is no aortic aneurysm. BOWEL/MESENTERY: Again, some inflammatory stranding around the celiac axis and vertical mesentery. Diverticular diseas e of the descending colon without diverticulitis. ABDOMINAL WALL: Within normal limits. RETROPERITONEUM: There is no lymphadenopathy. BLADDER: No wall thickening or mass. REPRODUCTIVE: Within normal limits. INGUINAL: 4.1 cm left renal hernia only containing fat. MUSCULOSKELETAL: Bilateral total hip arthroplasties. There appears to be a fixation device on the spinous process of L 5. CONCLUSION: 1. Peripancreatic inflammatory changes seen previously show some interval improvement. There is still some inflammatory stranding at the root of the mesentery, however. 2. In addition, there is now pericholecystic inflammatory changes and pericholecystic fluid with mult iple gallstones are concerning for acute cholecystitis. 3. Diffuse hepatic fatty infiltration. 4. 4.1 cm left inguinal hernia only containing fat. 5. Bilateral renal cortical cysts. Mild diverticular disease of the descending colon without divertic ulitis. Hipolito Michael MD on September 22, 2017 at 1:19 Board Certified Radiologist. This report was verified electronically.
[2017-09-22] MEDS ORDERED: NURSING INFORMATION XX SCH (07:15)
[2017-09-22] MEDS ORDERED: MORPHINE SULFATE 4 MG/ML INJ IV PUSH PRN (07:15)
[2017-09-22] MEDS ORDERED: CHLORHEXIDINE GLUCONATE 2 % 1 PACK (2 CLOTHS) TOP PRN (07:15)
[2017-09-22] MEDS ORDERED: RESP: ALBUTEROL 2.5 MG/IPRATROPIUM 0.5 MG NEB (PRN) INH (07:15)
--- NOTE | 2017-09-22 07:19 | HHI.HP ---
[facility] Service Critical Care Medicine Primary Care Physician Justin Kaye MD Admission Diagnosis Septic shock. Acute cholecystitis. Acute kidney injury. Diagnosis: (1) Septic shock Diagnosis: Principal (2) Acute cholecystitis Diagnosis: Principal (3) Acute on chronic kidney failure Diagnosis: Principal (4) Pancreatitis Diagnosis: Principal (5) History of DVT (deep vein thrombosis) Diagnosis: Secondary (6) History of atrial fibrillation Diagnosis: Secondary (7) Hypertension Diagnosis: Secondary (8) Pericardial effusion Diagnosis: Secondary Chief Complaint: Acute cholecystitis Septic shock Travel History International Travel<30 Days: No Contact w/Intl Traveler <30 Da: No Traveled to Known Affected Are: No Sepsis Criteria SIRS Criteria (2 or more): Heart rate over 90, WBC > 50164, < 4000 or > 10% bands Sepsis Criteria (SIRS+source): Infect source susp/known Severe Sepsis (+one): Hypotension Septic Shock Criteria: Unresponsive to 30ml/kg fluid bolus Criteria Outcome: Meets septic shock criteria History of Present Illness Patient is a 71-year-old male with past medical history significant for hypertension, history of TIA, history of DVT, history of pericarditis with pericardial effusion in 2014, who was recently [facility] - 09/18/2017 with gallstone pancreatitis. Patient was discharged home to follow-up with primary care and gastroenterology. He presented to the [facility] emergency department yesterday evening with shaking chills, generalized malaise and weakness. A CT scan of the abdomen done on 09/21/17 at [facility] showed peripancreatic inflammatory changes seen previously show some interval improvement, still some inflammatory stranding at the root of the mesentery. Pericholecystic inflammatory changes and pericholecystic fluid with multiple gallstones are concerning for acute cholecystitis. Patient was given vancomycin and Zosyn single dose, received 3 L normal saline bolus. Remained hypotensive so Dr. Felix placed femoral central line and was started on Levophed. Patient was transferred to the main hospital for further evaluation and surgical consult I evaluated the patient in the [facility] Main ICU. Patient looks acutely ill moderate right upper quadrant tenderness. He still requiring 4 mcg/min of Levophed. WBC count has increased from 10.2 to 14.9 with left shift. General surgery had been consulted for cholecystectomy evaluation. Placed on scheduled vancomycin and Zosyn. Keep n.p.o. additional 1 L normal saline bolus ordered Review of Systems ROS Limitations: Other (as per HPI) Past Family Social History Allergies: Coded Allergies: No Known Allergies (Unverified Adverse Reaction, Unknown, 09/16/17) Past Medical History Hypertension History of atrial fibrillation status post ablation History of DVT History of CVA Pericarditis/pericardial effusion in 2015 Benign prostatic hypertrophy Arthritis Past Surgical History Cardiac ablation for atrial fibrillation Bilateral hip replacement Right knee replacement Right inguinal hernia repair Lumbar spinal stenosis surgery Reported Medications Hydrocodone-Acetaminophen 10-325 mg (Hydrocodone/Acetaminophen) 10 Mg-325 Mg Tablet 1 Tab PO Q6H PRN 3 Days Tamsulosin (Tamsulosin HCl) 0.4 Mg Cap 0.4 Mg PO BID Finasteride 5 Mg Tab 5 Mg PO DAILY Multi-Vitamin Daily (Multiple Vitamin) 1 Tab Tab 1 Tab PO DAILY Lisinopril 20 Mg Tab 20 Mg PO BID Indomethacin 25 Mg Cap 25 Mg PO DAILY Aspirin 325 Mg Tab 325 Mg PO DAILY Active Ordered Medications reviewed Family History Parent had heart disease. Daughter recently diagnosed with gallstones Social History Lifetime non-smoker No alcohol use Physical Exam Vital Signs Vital Signs Date Time Temp Pulse Resp B/P (MAP) Pulse Ox O2 Delivery O2 Flow Rate FiO2 09/22/17 03:55 88 115/67 09/22/17 03:15 85 97/63 09/22/17 02:45 09/22/17 02:05 91 18 101/63 (76) 97 Nasal Cannula 3.00 09/22/17 02:00 96 101/63 (76) 09/22/17 01:47 94 103/63 (76) 09/22/17 01:33 95 18 84/62 (69) 95 Nasal Cannula 3.00 09/22/17 01:15 94 87/57 09/22/17 00:30 110 18 93/64 (74) 96 Nasal Cannula 3.00 09/22/17 00:00 110 18 83/58 (66) 97 Nasal Cannula 09/21/17 22:56 20 95 Nasal Cannula 3.00 09/21/17 22:53 126 20 95 Nasal Cannula 3.00 09/21/17 22:50 98.6 126 20 126/72 (90) 95 Physical Exam GENERAL: Well-nourished, well-developed patient, who appears ill currently on 4 mcg/min of Levophed SKIN: Focused skin assessment warm/dry. HEAD: Normocephalic. EYES: No scleral icterus. No injection or drainage. NECK: Supple, trachea midline. No JVD or lymphadenopathy. CARDIOVASCULAR: Tachycardic without murmurs, gallops, or rubs. Hypotensive on Levophed RESPIRATORY: Breath sounds equal bilaterally. No accessory muscle use. GASTROINTESTINAL: Moderate to severe tenderness on palpation right upper quadrant of the abdomen. No rebound tenderness. MUSCULOSKELETAL: No cyanosis, or edema. NEURO: Patient is awake alert oriented 3. Moving all extremities following commands. No obvious focal neurological deficit. Laboratory Laboratory Tests Test 09/21/17 22:50 White Blood Count 10.2 Red Blood Count 4.55 Hemoglobin 13.8 Hematocrit 41.2 Mean Corpuscular Volume 90.7 Mean Corpuscular Hemoglobin 30.3 Mean Corpuscular Hemoglobin Concent 33.4 Red Cell Distribution Width 12.2 Platelet Count 203 Mean Platelet Volume 7.4 Neutrophils (%) (Auto) 92.9 Lymphocytes (%) (Auto) 1.6 Monocytes (%) (Auto) 4.2 Eosinophils (%) (Auto) 0.6 Basophils (%) (Auto) 0.7 Neutrophils # (Auto) 9.4 Lymphocytes # (Auto) 0.2 Monocytes # (Auto) 0.4 Eosinophils # (Auto) 0.1 Basophils # (Auto) 0.1 CBC Comment DIFF FINAL Differential Comment Prothrombin Time 12.0 Prothromb Time International Ratio 1.2 Activated Partial Thromboplast Time 30.3 Blood Urea Nitrogen 27 Creatinine 1.60 Random Glucose 129 Total Protein 6.7 Albumin 2.6 Calcium Level 8.5 Alkaline Phosphatase 221 Aspartate Amino Transf (AST/SGOT) 71 Alanine Aminotransferase (ALT/SGPT) 178 Total Bilirubin 2.0 Sodium Level 135 Potassium Level 3.7 Chloride Level 101 Carbon Dioxide Level 24.4 Anion Gap 10 Estimat Glomerular Filtration Rate 43 Lactic Acid Level 1.2 Total Creatine Kinase 318 Creatine Kinase MB 1.7 Creatine Kinase MB % 0.5 Troponin I 0.07 Lipase 328 Date/Time Source Procedure Growth Status 09/21/17 22:55 Blood Peripheral Aerobic Blood Culture Pending Received 09/21/17 22:55 Blood Peripheral Anaerobic Blood Culture Pending Received 09/21/17 23:00 Nasal Washing Influenza Types A,B Antigen (STEVE) - Final NEGATIVE FOR FLU A AND B ANTIGEN.... Complete Result Diagram: 09/21/17224909/21/17224[address] abd/pelvis 09/21/17: Peripancreatic inflammatory changes seen previously show some interval improvement, still some inflammatory stranding at the root of the mesentery. There is now pericholecystic inflammatory changes and pericholecystic fluid with multiple gallstones are concerning for acute cholecystitis. Septic Shock Reassessment Septic shock perfusion: reassessment completed Caprini VTE Risk Assessment Caprini VTE Risk Assessment: Mod/High Risk (score >= 2) Caprini Risk Assessment Model Point Value = 1 Point Value = 2 Point Value = 3 Point Value = 5 Age 41-60 Minor surgery BMI > 25 kg/m2 Swollen legs Varicose veins or History of unexplained or recurrent spontaneous Oral contraceptives or hormone replacement Sepsis (< 1 month) Serious lung disease, including pneumonia (< 1 month) Abnormal pulmonary function Acute myocardial infarction Congestive heart failure (< 1 month) History of inflammatory bowel disease Medical patient at bed rest Age 61-74 Arthroscopic surgery Major open surgery (> 45 min) Laparoscopic surgery (> 45 min) Malignancy Confined to bed (> 72 hours) Immobilizing plaster cast Central venous access Age >= 75 History of VTE Family history of VTE Factor V Leiden Prothrombin [id number] Lupus anticoagulant Anticardiolipin antibodies Elevated serum homocysteine Heparin-induced thrombocytopenia Other congenital or acquired thrombophilia Stroke (< 1 month) Elective arthroplasty Hip, pelvis, or leg fracture Acute spinal cord injury (< 1 month) Prophylaxis Regimen Total Risk Factor Score Risk Level Prophylaxis Regimen 0-1 Low Early ambulation 2 Moderate Order ONE of the following: *Sequential Compression Device (SCD) *Heparin 5000 units SQ BID 3-4 Higher Order ONE of the following medications: *Heparin 5000 units SQ TID *Enoxaparin/Lovenox 40 mg SQ daily (WT < 150 kg, CrCl > 30 mL/min) *Enoxaparin/Lovenox 30 mg SQ daily (WT < 150 kg, CrCl > 10-29 mL/min) *Enoxaparin/Lovenox 30 mg SQ BID (WT < 150 kg, CrCl > 30 mL/min) AND/OR *Sequential Compression Device (SCD) 5 or more Highest Order ONE of the following medications: *Heparin 5000 units SQ TID (Preferred with Epidurals) *Enoxaparin/Lovenox 40 mg SQ daily (WT < 150 kg, CrCl > 30 mL/min) *Enoxaparin/Lovenox 30 mg SQ daily (WT < 150 kg, CrCl > 10-29 mL/min) *Enoxaparin/Lovenox 30 mg SQ BID (WT < 150 kg, CrCl > 30 mL/min) AND *Sequential Compression Device (SCD) Assessment and Plan Assessment and Plan NEURO: History of TIA -Pain controlled with as needed morphine -Hold home oxycodone -Hold aspirin in anticipation of surgical intervention RESP: -Nasal cannula oxygen -DuoNeb every 6 hours as needed, incentive spirometry while awake CV: Septic shock History of hypertension History of pericarditis with effusion in 2015 -Normal saline IV fluids 4L bolus and maintenance at 125 mL/h -Levophed to keep map above 65 -Hold lisinopril hold aspirin GI/ID: Acute cholecystitis Gallstone pancreatitis Septic shock Probable UTI -Panculture. Broad-spectrum antibiotics with vancomycin and Zosyn -General surgery consulted, await recommendation. Most likely will need cholecystectomy -Follow-up on cultures -CT of the abdomen pelvis reviewed : Acute on chronic kidney disease BPH -Monitor renal function closely. Place Hansen catheter. renal US -Continue IV fluid resuscitation as above HEME: -Monitor CBC, CMP ENDO: -Electrolyte replacement per protocol PROPH: -Bilateral lower extremity SCDs. Hold DVT prophylaxis for possible surgical intervention LINES: -Right femoral central line placed in the [facility] the ED by the ER physician Dr. Felix CC time 65 min Patient is critically ill at this time and septic shock from acute cholecystitis and pancreatitis. Requiring aggressive fluid resuscitation antibiotics and Levophed. Surgical consultation pending Code Status Full Discussed Condition With General surgery, patient Problem Qualifiers (1) Acute on chronic kidney failure: Rodger Meehan MD September 22, 2017 07:19
[2017-09-22 07:36] LABS: AUTOMATED NEUTROPHIL # 12.9 TH/MM3 (1.8-7.7); BASOPHIL # 0.1 TH/MM3 (0-0.2); BASOPHIL % 0.4 % (0.0-2.0); EOSINOPHIL % 0.1 % (0.0-4.0); HEMATOCRIT 37.9 % (39.0-51.0); HEMOGLOBIN 12.5 GM/DL (13.0-17.0); LYMPH % 3.1 % (9.0-44.0); LYMPHOCYTE # 0.5 TH/MM3 (1.0-4.8); MEAN CELL VOLUME 92.9 FL (80.0-100.0); MEAN CORPUSCULAR HEMOGLOBIN 30.8 PG (27.0-34.0); MEAN CORPUSCULAR HGB CONC 33.1 % (32.0-36.0); MEAN PLATELET VOLUME 8.1 FL (7.0-11.0); MONOCYTE # 1.5 TH/MM3 (0-0.9); NEUT % 86.4 % (16.0-70.0); PLATELET COUNT 227 TH/MM3 (150-450); RED BLOOD COUNT 4.08 MIL/MM3 (4.50-5.90); RED CELL DISTRIBUTION WIDTH 13.3 % (11.6-17.2); WHITE BLOOD COUNT 14.9 TH/MM3 (4.0-11.0)
[2017-09-22 08:04] LABS: ALBUMIN 2.3 GM/DL (3.4-5.0); ALT (GPT) 159 U/L (12-78); AST (GOT) 87 U/L (15-37); BICARBONATE 26.6 MEQ/L (21.0-32.0); BLOOD UREA NITROGEN 24 MG/DL (7-18); CALCIUM 7.9 MG/DL (8.5-10.1); CHLORIDE 106 MEQ/L (98-107); CREATININE 1.64 MG/DL (0.60-1.30); GLOMERULAR FILTRATION RATE 42 ML/MIN (>89); GLUCOSE,RANDOM 125 MG/DL (74-106); MAGNESIUM 2.2 MG/DL (1.5-2.5); PHOSPHORUS 5.3 MG/DL (2.5-4.9); SODIUM (NA) 142 MEQ/L (136-145)
[2017-09-22 08:07] LABS: ALKALINE PHOSPHATASE 179 U/L (45-117); TOTAL BILIRUBIN ADULT 0.9 MG/DL (0.2-1.0); TOTAL PROTEIN 5.8 GM/DL (6.4-8.2)
[2017-09-22 08:25] LABS: AMORPHOUS SEDIMENT, URINE OCC; BACTERIA, URINE RARE /hpf; BILIRUBIN, URINE NEG (NEG); BLOOD, URINE MOD (NEG); GLUCOSE,URINE NEG (NEG); KETONE, URINE 10 mg/dL (NEG); MUCUS URINE FEW /lpf (OCC); NITRITE,URINE NEG (NEG); PH, URINE 5.5 (5.0-8.5); SQUAMOUS EPITHELIAL CELL URINE 1 /hpf (0-5); URINE COLOR YELLOW (YELLW/STRAW); URINE LEUKOCYTE ESTERASE NEG (NEG)
--- NOTE | 2017-09-22 08:56 | EKG ---
Date Performed: 09/21/2017 Time Performed: 23:03:52 PTAGE: 71 years EKG: Baseline artifact present Unclear underlying rhythm, possibly sinus tachycardia or atrial f lutter with rapid response. RIGHT BUNDLE BRANCH BLOCK LEFT ANTERIOR FASCICULAR BLOCK POSSIBLE ANTERIO R MYOCARDIAL INFARCTION ABNORMAL ECG Compared to prior electrocardiogram, I cannot accurately compare rhythm but I see no other acute changes. PREVIOUS TRACING : 09/16/2017 18.22 DOCTOR: Zachary Carrero Interpretating Date/Time 09/22/2017 08:55:43
[2017-09-22] MEDS: FAMOTIDINE 20 MG/2 ML VIAL IV PUSH SCH ×2 (09:43→23:20)
[2017-09-22] MEDS: PIPERACIL-TAZO 3.375 GM PREMIX 50 ML IV SCH ×3 (09:49→23:20)
--- NOTE | 2017-09-22 10:11 | PD.CONS ---
cc: Silverio Moody MD [facility] Service General Surgery Consult Requested By Dr. iPerre Reason for Consult Acute cholecystitis Primary Care Physician Justin Kaye MD History of Present Illness This is a 71 year old male with a past medical history of atrial fibrillation s/ p cardiac ablation, BPH and arthritis. The patient was recently admitted at [facility] for gallstone pancreatitis. GI was following the patient. The patient was discharged home. The patient came back to the ED yesterday with complaints of generalized malaise and uncontrolled shaking and chills. He was hypotensive in the ED and a central line was placed and the patient was given several normal saline boluses and low dose Levophed was started. The patient does have an elevated WBC. He was given one dose of Vancomycin and started on Zosyn. The patient's liver enzymes are elevated but his total bilirubin is 0.9 today. His lipase is 252. A CT abdomen/pelvis was completed which is concerning for acute cholecystitis and cholelithiasis. A General Surgery consultation has been requested. Review of Systems Constitutional: COMPLAINS OF: Fatigue, Chills, DENIES: Change in appetite Endocrine: DENIES: Polydipsia, Polyuria, Polyphagia Eyes: DENIES: Diplopia, Eye inflammation Ears, nose, mouth, throat: DENIES: Hearing loss Respiratory: DENIES: Cough, Snoring Cardiovascular: DENIES: Chest pain Gastrointestinal: COMPLAINS OF: Abdominal pain, Constipation, DENIES: Nausea, Vomiting Genitourinary: DENIES: Urgency, Hematuria Musculoskeletal: DENIES: Joint pain Integumentary: DENIES: Abnormal pigmentation Hematologic/lymphatic: DENIES: Bruising Immunologic/allergic: DENIES: Eczema Neurologic: DENIES: Headache, Localized weakness Psychiatric: DENIES: Confusion, Mood changes, Depression Past Family Social History Past Medical History History of DVT in LEFT leg---NOT on oral anticoagulation BPH Arthritis History of atrial fibrillation Past Surgical History Cardiac ablation Bilateral hip replacement RIGHT knee replacement RIGHT open inguinal hernia repair Lumbar spinal stenosis surgery Reported Medications Tamsulosin Lisinopril Aspirin Indomethacin [place] MultiVitamin Finasteride Allergies: Coded Allergies: No Known Allergies (Unverified Adverse Reaction, Unknown, 09/16/17) Active Ordered Medications Current Medications Medications (Trade) Dose Ordered Sig/Lobo Route Start Time Stop Time Status Last Admin Norepinephrine Bitartrate 250 ml @ 7.5 mls/hr TITRATE PRN IV 09/22/17 00:15 09/22/17 01:15 (Brethine Inj) 1 mg UNSCH PRN SQ 09/22/17 00:15 Sodium Chloride 1,000 ml @ 125 mls/hr Q8H IV 09/22/17 00:30 09/22/17 00:48 Piperacillin Sod/ Tazobactam Sod 50 ml @ 100 mls/hr Q6H IV 09/22/17 10:00 (Morphine Inj) 2 mg Q2H PRN IV PUSH 09/22/17 07:15 (Pepcid Inj) 10 mg Q12HR IV PUSH 09/22/17 09:00 (Duoneb Neb) 1 ampule Q4HR NEB PRN INH 09/22/17 07:15 (Heparin Inj) 5,000 units Q8H SQ 09/22/17 09:00 Future Hold ([facility] Nursing Information) 1 Q361D XX 09/22/17 07:15 (Chlorhexidine 2% Cloth) 3 pack Taper DAILY@04 TOP 09/23/17 04:00 09/19/18 03:59 (Chlorhexidine 2% Cloth) 3 pack UNSCH PRN TOP 09/22/17 07:15 Family History Daughter had laparoscopic cholecystectomy Social History Denies tobacco use +ETOH use ---occasionally with friends; no daily Denies illicit drug use Lives her locally in [place] with his . Has children that also live here. He is retired from the [employer] industry where he traveled in the [employer]. He still drives. He is independent with ADL. Physical Exam Vital Signs Vital Signs Date Time Temp Pulse Resp B/P (MAP) Pulse Ox O2 Delivery O2 Flow Rate FiO2 09/22/17 06:00 95 09/22/17 04:00 82 09/22/17 03:55 88 115/67 09/22/17 03:15 85 97/63 09/22/17 02:45 09/22/17 02:05 91 18 101/63 (76) 97 Nasal Cannula 3.00 09/22/17 02:00 96 101/63 (76) 09/22/17 01:47 94 103/63 (76) 09/22/17 01:33 95 18 84/62 (69) 95 Nasal Cannula 3.00 09/22/17 01:15 94 87/57 09/22/17 00:30 110 18 93/64 (74) 96 Nasal Cannula 3.00 09/22/17 00:00 110 18 83/58 (66) 97 Nasal Cannula 09/21/17 22:56 20 95 Nasal Cannula 3.00 09/21/17 22:53 126 20 95 Nasal Cannula 3.00 09/21/17 22:50 98.6 126 20 126/72 (90) 95 Physical Exam GENERAL: Very pleasant male resting in bed in no acute distress. SKIN: Warm and dry. HEAD: Atraumatic. Normocephalic. EYES: Pupils equal and round. No scleral icterus. No injection or drainage. ENT: No nasal bleeding or discharge. Mucous membranes pink and moist. NECK: Trachea midline. CARDIOVASCULAR: Regular rate and rhythm. RESPIRATORY: No accessory muscle use. Clear to auscultation. Breath sounds equal bilaterally. GASTROINTESTINAL: Abdomen soft, non-distended. Obese abdomen. RUQ tenderness with palpation. MUSCULOSKELETAL: Extremities without clubbing, cyanosis, or edema. No obvious deformities. NEUROLOGICAL: Awake and alert. No obvious cranial nerve deficits. Motor grossly within normal limits. Five out of 5 muscle strength in the arms and legs. Normal speech. PSYCHIATRIC: Appropriate mood and affect; insight and judgment normal. INVASIVE LINES: RIGHT femoral triple lumen central line; indwelling urinary catheter with clear yellow urine Laboratory Laboratory Tests Test 09/21/17 22:50 09/22/17 07:05 09/22/17 08:00 White Blood Count 10.2 14.9 Red Blood Count 4.55 4.08 Hemoglobin 13.8 12.5 Hematocrit 41.2 37.9 Mean Corpuscular Volume 90.7 92.9 Mean Corpuscular Hemoglobin 30.3 30.8 Mean Corpuscular Hemoglobin Concent 33.4 33.1 Red Cell Distribution Width 12.2 13.3 Platelet Count 203 227 Mean Platelet Volume 7.4 8.1 Neutrophils (%) (Auto) 92.9 86.4 Lymphocytes (%) (Auto) 1.6 3.1 Monocytes (%) (Auto) 4.2 10.0 Eosinophils (%) (Auto) 0.6 0.1 Basophils (%) (Auto) 0.7 0.4 Neutrophils # (Auto) 9.4 12.9 Lymphocytes # (Auto) 0.2 0.5 Monocytes # (Auto) 0.4 1.5 Eosinophils # (Auto) 0.1 0.0 Basophils # (Auto) 0.1 0.1 CBC Comment DIFF FINAL DIFF FINAL Differential Comment Prothrombin Time 12.0 Prothromb Time International Ratio 1.2 Activated Partial Thromboplast Time 30.3 Blood Urea Nitrogen 27 24 Creatinine 1.60 1.64 Random Glucose 129 125 Total Protein 6.7 5.8 Albumin 2.6 2.3 Calcium Level 8.5 7.9 Alkaline Phosphatase 221 179 Aspartate Amino Transf (AST/SGOT) 71 87 Alanine Aminotransferase (ALT/SGPT) 178 159 Total Bilirubin 2.0 0.9 Sodium Level 135 142 Potassium Level 3.7 3.6 Chloride Level 101 106 Carbon Dioxide Level 24.4 26.6 Anion Gap 10 9 Estimat Glomerular Filtration Rate 43 42 Lactic Acid Level 1.2 Total Creatine Kinase 318 Creatine Kinase MB 1.7 Creatine Kinase MB % 0.5 Troponin I 0.07 Lipase 328 252 Phosphorus Level 5.3 Magnesium Level 2.2 Urine Color YELLOW Urine Turbidity HAZY Urine pH 5.5 Urine Specific Humphrey 1.032 Urine Protein 30 Urine Glucose (UA) NEG Urine Ketones 10 Urine Occult Blood MOD Urine Nitrite NEG Urine Bilirubin NEG Urine Urobilinogen LESS THAN 2.0 Urine Leukocyte Esterase NEG Urine RBC 1 Urine WBC 17 Urine Squamous Epithelial Cells 1 Urine Amorphous Sediment OCC Urine Bacteria RARE Urine Mucus FEW Microscopic Urinalysis Comment CULTURE INDICATED Date/Time Source Procedure Growth Status 09/21/17 22:55 Blood Peripheral Aerobic Blood Culture Pending Received 09/21/17 22:55 Blood Peripheral Anaerobic Blood Culture Pending Received 09/21/17 23:00 Nasal Washing Influenza Types A,B Antigen (STEVE) - Final NEGATIVE FOR FLU A AND B ANTIGEN.... Complete 09/22/17 08:00 Urine Random Urine Urine Culture Pending Received Result Diagram: 09/22/17 0705 09/22/17 0705 Imaging Last 48 hours Impressions Abdomen/Pelvis CT 09/22/17 0023 Signed Impressions: Service Date/Time: Friday, September 22, 2017 00:47 - CONCLUSION: 1. Peripancreatic inflammatory changes seen previously show some interval improvement. There is still some inflammatory stranding at the root of the mesentery, however. 2. In addition, there is now pericholecystic inflammatory changes and pericholecystic fluid with multiple gallstones are concerning for acute cholecystitis. 3. Diffuse hepatic fatty infiltration. 4. 4.1 cm left inguinal hernia only containing fat. 5. Bilateral renal cortical cysts. Mild diverticular disease of the descending colon without diverticulitis. Hipolito Michael MD Chest X-Ray 09/21/17 [id number] Signed Impressions: Service Date/Time: Thursday, September 21, 2017 22:52 - CONCLUSION: Stable examination with no acute cardiopulmonary process Hipolito Michael MD Assessment and Plan Assessment and Plan 71 year old male with recent hospitalization for gallstone pancreatitis; now back with acute cholecystitis -Remain NPO -Continue to wean vasopressor medications as tolerated -Continue IVF -Zosyn -Will plan for laparoscopic cholecystectomy this afternoon -Obtain consents -Hold anticoagulation -Discussed procedure with patient including risks and benefits---all questions answered -Thank you for this consult; We will continue to follow PT SEEN AND EVALUATED WITH CHECKERING MACHINE ADJUSTER WHO DOCUMENTED OUR VISIT. SEPTIC ACUTE CHOLECYSTITIS. REQUIRES IMMEDIATE CHOLECYSTECTOMY. OR NOTIFIED. D/W DR PIERRE IN [facility], HE AGREES AND CLEARS PT FOR IMMEDIATE SURGERY. D/W AND PATIENT AT BEDSIDE. SILVERIO MOODY MD FACS Discussed Condition With Dr. Sophia Montgomery RN Rachelle Marie CHECKERING MACHINE ADJUSTER/Kitchen Operator CHECKERING MACHINE ADJUSTER September 22, 2017 10:10 Silverio Moody MD September 23, 2017 09:43
[2017-09-22] MEDS ORDERED: PHENYLEPH/NS 1000 MCG/10 ML SYR IV ONE (12:00)
[2017-09-22] MEDS ORDERED: ePHEDrine/NS 25 MG/5 ML SYRINGE IV ONE (12:00)
[2017-09-22] MEDS ORDERED: PROPOFOL 200 MG/20 ML AMP IV ONE ×2 (12:00)
[2017-09-22] MEDS ORDERED: LIDOCAINE HCL 1% PF 5 ML SYRINGE OTHER ONE ×2 (12:00)
[2017-09-22] MEDS ORDERED: ROCURONIUM INJ 50 MG/5 ML SYRINGE IV PUSH ONE (12:00)
[2017-09-22] MEDS ORDERED: NEOSTIGMINE 5 MG/5 ML SYRINGE IV PUSH ONE (12:00)
[2017-09-22] MEDS ORDERED: ONDANSETRON HCL 4 MG/2 ML VIAL IV ONE (12:00)
[2017-09-22] MEDS ORDERED: GLYCOPYRROLATE 1 MG/5 ML SYRINGE IV PUSH ONE (12:00)
[2017-09-22] MEDS ORDERED: DEXAMETHASONE SOD PHOS 4 MG/ML VIAL IV ONE (12:00)
[2017-09-22] MEDS ORDERED: INSULIN HUMAN REGULAR 1,000 UNITS/10 ML VIAL SQ PRN (12:15)
[2017-09-22] MEDS ORDERED: POVIDONE IODINE 5% (ANTISEPSIS KIT) 4 APPLICATIONS EACH NARE PRN (12:15)
[2017-09-22] MEDS ORDERED: SODIUM CHLORID 0.9% 500 ML IV PRN (12:15)
[2017-09-22] MEDS ORDERED: METOPROLOL TARTRATE 25 MG TAB PO PRN (12:15)
[2017-09-22] MEDS ORDERED: LACTATED RINGER'S 1000 ML IV PRN (12:15)
[2017-09-22] MEDS ORDERED: CHLORHEXIDINE GLUCONATE 2 % 1 PACK (2 CLOTHS) TOPICAL PRN (12:15)
--- NOTE | 2017-09-22 14:19 | RADRPT ---
EXAM DATE/TIME: 09/22/2017 11:59 [place] COMPARISON: No previous studies available for comparison. INDICATIONS : Elevated BUN/creatinine. Septic shock. MEDICAL HISTORY : Hypertension. Deep venous thrombosis. TIA. History of pericarditis. Gallstone pancreatitis. History of atrial fibrillation. SURGICAL HISTORY : Total knee replacement, right. Cardiac ablation. Bilateral hip replacment. Lumbar stenosis surger y. ENCOUNTER: Initial ACUITY: 2 days PAIN SCORE: 0/10 LOCATION: Bilateral flank MEASUREMENTS: RIGHT KIDNEY: 12.4 x 6.3 x 6.9 cm LEFT KIDNEY: 11.5 x 5.2 x 7.4 cm FINDINGS: RIGHT KIDNEY: Renal cortex is normal in thickness and echotexture. No hydronephrosis, stone, or mass. 2.3 x 1.6 x 2.6 cm anechoic avascular cystic lesion near the superior pole. LEFT KIDNEY: Renal cortex is normal in thickness and echotexture. No hydronephrosis, stone, or mass. 3.8 x 2.7 x 3.0 cm avascular cystic lesion near the superior pole. BLADDER: Decompressed secondary to Hansen catheter. CONCLUSION: 1. Bilateral simple appearing renal cysts. 2. No evidence for obstructive uropathy. Santy uH MD on September 22, 2017 at 14:15 Board Certified Radiologist. This report was verified electronically.
[2017-09-22] MEDS ORDERED: BUPIVACAINE/EPINEPHRINE 0.5% PF 10 ML VIAL ONE (17:19)
[2017-09-22] MEDS ORDERED: ACETAMINOPHEN 1000 MG/100 ML 100 ML IV ONE (17:24)
[2017-09-22] MEDS ORDERED: MIDAZOLAM HCL 2 MG/2 ML VIAL ONE (19:06)
[2017-09-22] MEDS ORDERED: ACETAMINOPHEN/HYDROcodone 325 MG/5 MG TAB PO PRN (20:15)
[2017-09-22] MEDS ORDERED: DO NOT ADM ANY ANTICOAGULANT DRUGS PRN (20:40)
--- NOTE | 2017-09-22 21:00 | MP ---
cc: Konrad Cortes MD DATE OF OPERATION: 09/22/2017 PREOPERATIVE DIAGNOSES: Septic shock secondary to acute cholecystitis, small umbilical hernia, morbid obesity. POSTOPERATIVE DIAGNOSES: 1. Septic shock secondary to acute cholecystitis. 2. Acute gangrenous cholecystitis. PROCEDURES PERFORMED: Emergent laparoscopic cholecystectomy, primary repair of umbilical hernia. SURGEON: Konrad Cortes MD ANESTHESIA: General endotracheal. COMPLICATIONS: None. INDICATIONS FOR PROCEDURE: Mr. Castrejon is a very pleasant 71-year-old gentleman who presented to [facility] last week with an episode of pancreatitis. This is felt to be most likely secondary to gallstones. He was discharged home and advised to followup with a surgeon for consideration of elective cholecystectomy. Last evening, he developed severe right upper quadrant abdominal pain. His stated that she found him on the floor shaking uncontrollably. She called EMS and he was brought to the [facility], where he was found to be hypotensive. He was seen and evaluated today with Dr. Felix. Dr. Felix placed a central line and started him on IV pressors and worked him up. During his evaluation, he was found to have what appeared to be a very acute cholecystitis with pericholecystic fluid, marked edema of the gallbladder and the liver bed, with inflammation tracking down the root of the mesentery with multiple large gallstones seen. This was concerning for an acute cholecystitis. The patient was transferred to [facility], intensive care unit, where he was admitted and seen by Dr. Meehan. Dr. Meehan evaluated and found the patient to have significant right upper quadrant pain. He was still in septic shock, requiring aggressive fluid resuscitation and pressor therapy. Immediate surgical consultation was requested. The patient was seen and evaluated. He was examined and again found to have sepsis, likely secondary to acute cholecystitis. He was offered emergent cholecystectomy. Risks and benefits of the procedure were discussed with him and his at the bedside and he was agreeable. INTRAOPERATIVE FINDINGS: The patient had a massive, distended, edematous gallbladder that was filled with pus. There were some ischemic changes noted. There was very intense inflammatory reaction around the gallbladder and the liver bed. We had to decompress the gallbladder with a needle and we retrieved about 100 mL of gross pus that was very foul smelling. There was a dense inflammatory reaction and the dissection off the gallbladder, off the liver bed was quite challenging. DETAILS OF PROCEDURE: The patient was identified, brought to the operating room, placed supine on the operating table. After adequate endotracheal anesthesia was achieved, the abdomen was prepped and draped in standard surgical fashion. The patient was noted to have a small umbilical hernia. 0.25% Marcaine were injected in the skin and subcutaneous tissue above the umbilicus. A transverse incision was made. Dissection was carried down to the umbilical hernia. Fascial defect was identified and enlarged in order to allow a finger to enter the abdominal cavity. The finger was then placed in the abdominal cavity without any difficulty. Blunt balloon trocar was inserted and the abdomen was insufflated to 15 mmHg using CO2 gas. Next, two 5 mm trocars were placed in the right upper quadrant, after anesthetizing the skin and subcutaneous tissue 0.25% Marcaine. Immediately, we encountered a very distended, edematous gallbladder that was completely wrapped in omentum. We, therefore, placed a third port in the right upper quadrant in order to assist with retraction and elevation of the gallbladder. Gallbladder was markedly edematous and extremely large, and we were unable to grasp it and elevate it. I, therefore, performed a needle decompression using a 60 mL syringe. We retrieved about 100 mL of foul smelling, thick yellow pus. This was discarded. Once we did this, we were able to elevate the gallbladder cephalad. Once we could elevate the gallbladder, attention was directed to the gallbladder neck. Using meticulous blunt hydrodissection and limited electrocautery dissection, we were able to identify out the cystic duct going in the neck of the gallbladder. Once it was confirmed in 2 planes, it was clipped twice proximally, once distally and then divided. Dissection then proceeded up more superiorly, identifying what appeared to be the cystic artery, going into the neck of the gallbladder. It was clipped twice proximally and once distally and then divided. Attention was now directed to dissection of the gallbladder out of the hepatic fossa. It should be noted there was a very intense inflammatory reaction and there was no discernable tissue plane between the gallbladder and the liver. Using meticulous and slow electrocautery dissection, we were able to free the gallbladder up from the liver. This took an extraordinary amount of time due to the very tedious and meticulous dissection. Multiple bleeding points on the liver were controlled with electrocautery Bovie. Finally, the giant gallbladder was dissected out of the hepatic fossa. It was placed into an Endopouch bag. We then had to enlarge the fascial and skin incision in order to retrieve the large gallbladder. We did get the gallbladder out. Gallbladder was inspected and noted to be markedly edematous, thickened, with some ischemic changes. There were multiple gallstones noted within the gallbladder. They were quite large. The cystic duct clip was intact and there was no evidence of leakage. Gallbladder was then sent to pathology for analysis. Next, the abdominal cavity was revisualized. There was about 50 mL of gross blood within the abdomen and we suctioned that out and suction irrigated. Liver bed was carefully inspected. Several bleeding points were controlled with the Bovie using a higher setting, which stopped all bleeding. The clips were reinspected on the cystic duct and the cystic artery. There was no evidence of leakage of bile and no evidence of bleeding. At this point, the abdominal cavity was rinsed out with 500 mL of warm saline solution. Liver bed was again reinspected and found to be hemostatic. Clips were reinspected and there was no leakage of bile and no evidence of bleeding. Next, Surgicel powder was placed in the liver bed in order to promote coagulation. The liver bed was also packed with omentum. The abdominal cavity was then desufflated under direct vision. Attention was now directed to repair the umbilical hernia. Because of the gross contamination of the gallbladder and the active infection and sepsis, I elected not to use a mesh. I, therefore, performed a primary repair using a 0 Prolene suture with the knowledge the patient would likely get a recurrence due to his morbid obesity and the fact that this was an acute emergent procedure and we did not use a mesh. Using interrupted 0 Prolenes, the fascial defect was closed. This took about 7 sutures in order to achieve primary closure with no significant gaps. Wounds were copiously irrigated with normal saline solution. Wounds were then closed with 4-0 Monocryl. The patient tolerated the procedure well. Estimated blood loss was about 200 mL. He was extubated and transferred to recovery room in stable condition. Please note, this operative procedure took an extraordinary amount of time due to the acute inflammatory nature of the acute gangrenous/septic cholecystitis. This was an emergent procedure. We had to open additional instrumentation and took excessive amount of time in order to achieve a safe cholecystectomy laparoscopically. MD EDITA Murray , 08:23 PM , 08:59 PM
[2017-09-23] VITALS (10 sets, daily range): BP systolic 115–143; BP diastolic 62–75; PULSE 70–84; RESP 13–22; TEMP 97.7–98.4; O2SAT 92–99
[2017-09-23] MEDS: CHLORHEXIDINE GLUCONATE 2 % 1 PACK (2 CLOTHS) TOP SCH (04:00)
[2017-09-23] MEDS: PIPERACIL-TAZO 3.375 GM PREMIX 50 ML IV SCH ×4 (04:39→21:37)
[2017-09-23] MEDS: SODIUM CHLOR 0.9% 1000 ML INJ 1,000 ML IV SCH ×2 (04:41→08:42)
[2017-09-23 06:54] LABS: AUTOMATED NEUTROPHIL # 8.5 TH/MM3 (1.8-7.7); BASOPHIL % 0.4 % (0.0-2.0); EOSINOPHIL % 0.3 % (0.0-4.0); HEMATOCRIT 36.1 % (39.0-51.0); HEMOGLOBIN 12.3 GM/DL (13.0-17.0); LYMPH % 2.9 % (9.0-44.0); LYMPHOCYTE # 0.3 TH/MM3 (1.0-4.8); MEAN CELL VOLUME 92.8 FL (80.0-100.0); MEAN CORPUSCULAR HEMOGLOBIN 31.7 PG (27.0-34.0); MEAN CORPUSCULAR HGB CONC 34.1 % (32.0-36.0); MEAN PLATELET VOLUME 8.2 FL (7.0-11.0); MONO % 5.5 % (0.0-8.0); MONOCYTE # 0.5 TH/MM3 (0-0.9); NEUT % 90.9 % (16.0-70.0); PLATELET COUNT 213 TH/MM3 (150-450); RED BLOOD COUNT 3.89 MIL/MM3 (4.50-5.90); RED CELL DISTRIBUTION WIDTH 13.6 % (11.6-17.2); WHITE BLOOD COUNT 9.3 TH/MM3 (4.0-11.0)
[2017-09-23 07:18] LABS: ALBUMIN 2.2 GM/DL (3.4-5.0); ALKALINE PHOSPHATASE 150 U/L (45-117); ALT (GPT) 278 U/L (12-78); AST (GOT) 242 U/L (15-37); BICARBONATE 27.9 MEQ/L (21.0-32.0); BLOOD UREA NITROGEN 23 MG/DL (7-18); CALCIUM 7.6 MG/DL (8.5-10.1); CHLORIDE 108 MEQ/L (98-107); CREATININE 1.29 MG/DL (0.60-1.30); GLOMERULAR FILTRATION RATE 55 ML/MIN (>89); GLUCOSE,RANDOM 124 MG/DL (74-106); SODIUM (NA) 143 MEQ/L (136-145); TOTAL BILIRUBIN ADULT 0.5 MG/DL (0.2-1.0); TOTAL PROTEIN 5.7 GM/DL (6.4-8.2)
[2017-09-23] MEDS: FAMOTIDINE 20 MG/2 ML VIAL IV PUSH SCH (08:39)
--- NOTE | 2017-09-23 08:45 | HHI.CCPN ---
Subjective Remarks/Hospital Course Patient is a 71-year-old male with past medical history significant for hypertension, history of TIA, history of DVT, history of pericarditis with pericardial effusion in 2015, who was recently admitted to the [facility] from 09/16/2017 - 09/18/2017 with gallstone pancreatitis. Patient was discharged home to follow-up with primary care and gastroenterology. He presented to the [place] emergency department yesterday evening with shaking chills, generalized malaise and weakness. A CT scan of the abdomen done on 09/21/17 at [place] showed peripancreatic inflammatory changes seen previously show some interval improvement, still some inflammatory stranding at the root of the mesentery. Pericholecystic inflammatory changes and pericholecystic fluid with multiple gallstones are concerning for acute cholecystitis. Patient was given vancomycin and Zosyn single dose, received 3 L normal saline bolus. Remained hypotensive so Dr. Felix placed femoral central line and was started on Levophed. Patient was transferred to the [facility] hospital for further evaluation and surgical consult. I evaluated the patient in the [place] [facility] ICU. Patient looks acutely ill moderate right upper quadrant tenderness. He still requiring 4 mcg/min of Levophed. WBC count has increased from 10.2 to 14.9 with left shift. General surgery had been consulted for cholecystectomy evaluation. Placed on scheduled vancomycin and Zosyn. Keep n.p.o. additional 1 L normal saline bolus ordered SUBJ 09/23: Patient is status post emergency cholecystectomy. Surgical notes states massive, distended, edematous gallbladder filled with pus with some ischemic changes noted, intense inflammatory reaction around the gallbladder and the liver bed. Gallbladder was needle decompressed and retrieved about 100 mL of gross pus. Currently patient remains off all pressors. Cleared by surgery for advancing diet, transfer out of ICU Objective Vital Signs Date Time Temp Pulse Resp B/P (MAP) Pulse Ox O2 Delivery O2 Flow Rate FiO2 09/23/17 06:00 70 09/23/17 04:47 96 Nasal Cannula 2.00 09/23/17 04:00 97.9 18 115/62 (79) Intake and Output 09/23/17 09/23/17 09/24/17 08:00 16:00 00:00 Output Total 750 ml Balance -750 ml Result Diagram: 09/23/17 0600 09/23/17 0600 Other Results Microbiology Date/Time Source Procedure Growth Status 09/21/17 23:00 Nasal Washing Influenza Types A,B Antigen (STEVE) - Final NEGATIVE FOR FLU A AND B ANTIGEN.... Complete Imaging CT abd/pelvis 09/21/17: Peripancreatic inflammatory changes seen previously show some interval improvement, still some inflammatory stranding at the root of the mesentery. There is now pericholecystic inflammatory changes and pericholecystic fluid with multiple gallstones are concerning for acute cholecystitis. Objective Remarks GENERAL: Well-nourished, well-developed patient, who appears improved from yesterday SKIN: Focused skin assessment warm/dry. HEAD: Normocephalic. EYES: No scleral icterus. No injection or drainage. NECK: Supple, trachea midline. No JVD or lymphadenopathy. CARDIOVASCULAR: S1-S2 normal without murmurs, gallops, or rubs. RESPIRATORY: Breath sounds equal bilaterally. No accessory muscle use. GASTROINTESTINAL: Moderate tenderness on palpation right upper quadrant of the abdomen. MUSCULOSKELETAL: No cyanosis, or edema. NEURO: Patient is awake alert oriented 3. Moving all extremities following commands. No obvious focal neurological deficit. Urinary Catheter: Yes Assessment to: Remove A/P Assessment and Plan NEURO: History of TIA -Pain controlled with as needed morphine -Hold home oxycodone -Resume aspirin when cleared by general surgery RESP: -Nasal cannula oxygen -DuoNeb every 6 hours as needed, incentive spirometry while awake CV: Septic shock -resolved History of hypertension History of pericarditis with effusion in 2015 -s/p Normal saline IV fluids 4L bolus and maintenance at 125 mL/h. Reduce NS to 50 ml per hour -Holding lisinopril. Resume aspirin today GI/ID: Acute gangrenous cholecystitis Gallstone pancreatitis Septic shock-resolved Probable UTI -f/u Panculture. Broad-spectrum antibiotics with vancomycin and Zosyn -General surgery Dr. Cortes. Status post emergency cholecystectomy yesterday -See operative note -CT of the abdomen pelvis reviewed : Acute on chronic kidney disease BPH -Monitor renal function closely. Discontinue fluid, reduce IV fluid to 50 mL/h HEME: -Monitor CBC, CMP ENDO: -Electrolyte replacement per protocol PROPH: -Bilateral lower extremity SCDs. Subcu heparin for DVT prophylaxis LINES: -Right femoral central line placed in the [place] the ED by the ER physician Dr. Valentin today Level 2 Improved significantly. Transferred to [facility]. Consult hospitalist to assume care tomorrow 09/24/2017 Rodger Meehan MD September 23, 2017 08:45
[2017-09-23] MEDS ORDERED: POTASSIUM PHOSPHATE MONOBASIC 500 MG TAB PO PRN (09:00)
[2017-09-23] MEDS ORDERED: POTASSIUM CHLOR 40 MEQ PREMIX 100 ML IV PRN ×2 (09:00)
[2017-09-23] MEDS ORDERED: POTASSIUM CHLOR 20 MEQ PREMIX 100 ML IV PRN ×2 (09:00)
[2017-09-23] MEDS ORDERED: MAGNESIUM OXIDE 400 MG TAB PO PRN (09:00)
[2017-09-23] MEDS ORDERED: POTASSIUM PHOSPHATE MONOBASIC 500 MG TAB PO/TUBE PRN (09:00)
[2017-09-23] MEDS ORDERED: SODIUM PHOSPHATE INJ 30 MMOL in SODIUM CHLOR 0.9% 250 ML INJ 240 ML IV PRN (09:00)
[2017-09-23] MEDS ORDERED: POTASSIUM CHLORIDE 25 MEQ EFFERVESCENT TAB PO PRN (09:00)
[2017-09-23] MEDS ORDERED: POTASSIUM PHOSPHATE INJ 30 MMOL in SODIUM CHLOR 0.9% 250 ML INJ 250 ML IV PRN (09:00)
[2017-09-23] MEDS ORDERED: MAGNESIUM SULFATE INJ 4 GM in SODIUM CHLORIDE 0.9% INJ 92 ML IV PRN (09:00)
[2017-09-23] MEDS ORDERED: MAGNESIUM SULFATE INJ 2 GM in SODIUM CHLORIDE 0.9% INJ 96 ML IV PRN (09:00)
--- NOTE | 2017-09-23 09:43 | EKG ---
Date Performed: 09/22/2017 Time Performed: 10:53:02 PTAGE: 71 years EKG: Sinus rhythm Left axis deviation RBBB with left anterior fascicular block Possible anterior infarct - age undeter mined Lateral T wave changes may be due to myocardial ischemia Low QRS voltages in precordial leads A bnormal ECG PREVIOUS TRACING 09/21/17 Slower sinus rate, but otherwise no change from the prior tracing. DOCTOR: Chris Hawkins Interpretating Date/Time 09/23/2017 09:43:11
[2017-09-23] MEDS: ASPIRIN 325 MG TAB PO SCH (10:14)
--- NOTE | 2017-09-23 10:52 | HHI.PR ---
cc: Konrad Cortes MD Subjective Subjective Notes Resting in bed Feeling much better than before surgery Objective Vitals/I&O Vital Signs Date Time Temp Pulse Resp B/P (MAP) Pulse Ox O2 Delivery O2 Flow Rate FiO2 09/23/17 08:00 98.2 72 13 134/72 (92) 99 09/23/17 07:00 Nasal Cannula 3.00 Labs Laboratory Tests Test 09/23/17 06:00 White Blood Count 9.3 Red Blood Count 3.89 Hemoglobin 12.3 Hematocrit 36.1 Mean Corpuscular Volume 92.8 Mean Corpuscular Hemoglobin 31.7 Mean Corpuscular Hemoglobin Concent 34.1 Red Cell Distribution Width 13.6 Platelet Count 213 Mean Platelet Volume 8.2 Neutrophils (%) (Auto) 90.9 Lymphocytes (%) (Auto) 2.9 Monocytes (%) (Auto) 5.5 Eosinophils (%) (Auto) 0.3 Basophils (%) (Auto) 0.4 Neutrophils # (Auto) 8.5 Lymphocytes # (Auto) 0.3 Monocytes # (Auto) 0.5 Eosinophils # (Auto) 0.0 Basophils # (Auto) 0.0 CBC Comment DIFF FINAL Differential Comment Blood Urea Nitrogen 23 Creatinine 1.29 Random Glucose 124 Total Protein 5.7 Albumin 2.2 Calcium Level 7.6 Alkaline Phosphatase 150 Aspartate Amino Transf (AST/SGOT) 242 Alanine Aminotransferase (ALT/SGPT) 278 Total Bilirubin 0.5 Sodium Level 143 Potassium Level 4.3 Chloride Level 108 Carbon Dioxide Level 27.9 Anion Gap 7 Estimat Glomerular Filtration Rate 55 Lactic Acid Level 0.9 Date/Time Source Procedure Growth Status 09/21/17 22:55 Blood Peripheral Aerobic Blood Culture - Preliminary NO GROWTH IN 1 DAY Resulted 09/21/17 22:55 Blood Peripheral Anaerobic Blood Culture - Preliminary NO GROWTH IN 1 DAY Resulted 09/21/17 23:00 Nasal Washing Influenza Types A,B Antigen (STEVE) - Final NEGATIVE FOR FLU A AND B ANTIGEN.... Complete 09/22/17 08:00 Urine Random Urine Urine Culture Pending Received Radiology Last 48 hours Impressions Abdomen/Pelvis CT 09/22/17 0023 Signed Impressions: Service Date/Time: Friday, September 22, 2017 00:47 - CONCLUSION: 1. Peripancreatic inflammatory changes seen previously show some interval improvement. There is still some inflammatory stranding at the root of the mesentery, however. 2. In addition, there is now pericholecystic inflammatory changes and pericholecystic fluid with multiple gallstones are concerning for acute cholecystitis. 3. Diffuse hepatic fatty infiltration. 4. 4.1 cm left inguinal hernia only containing fat. 5. Bilateral renal cortical cysts. Mild diverticular disease of the descending colon without diverticulitis. Hipolito Michael MD Chest X-Ray 09/21/17 2245 Signed Impressions: Service Date/Time: Thursday, September 21, 2017 22:52 - CONCLUSION: Stable examination with no acute cardiopulmonary process Hipolito Michael MD Cardiovascular: Regular Lungs: Clear Abdomen: Other (lap sites c/d/i; ), Post-op tenderness Extremities: No edema A/P Assessment and Plan 71 year old male POD1 lap ewa from septic cholecystitis -Clear liquids; advance to regular -Continue antibiotics -DC femoral central line once adequate PIV access obtained -OOB and mobilize -Pain control -DC IVF -Transfer to the floor; 7N please -Discussed with Dr. Meehan and RN Rachelle Ortiz/[employer] September 23, 2017 10:52
[2017-09-23] MEDS ORDERED: ACETAMINOPHEN/HYDROcodone 325 MG/5 MG TAB PO PRN ×2 (11:00)
[2017-09-23] MEDS ORDERED: MORPHINE SULFATE 2 MG/ML SYRINGE IV PUSH PRN (11:00)
[2017-09-23 11:26] LABS: MAGNESIUM 2.1 MG/DL (1.5-2.5); PHOSPHORUS 3.2 MG/DL (2.5-4.9)
[2017-09-23] MEDS: HEPARIN SODIUM - SQ 10,000 UNITS/ML VIAL SQ SCH (17:30)
[2017-09-23] MEDS: FAMOTIDINE 20 MG TAB PO SCH (21:37)
[2017-09-23] MEDS: TAMSULOSIN HCL 0.4 MG CAP PO SCH (21:37)
[2017-09-24] VITALS: BP 113/63; PULSE 75; RESP 17; TEMP 97.8; O2SAT 96
[2017-09-24] MEDS: HEPARIN SODIUM - SQ 10,000 UNITS/ML VIAL SQ SCH ×2 (02:42→07:46)
[2017-09-24] MEDS: PIPERACIL-TAZO 3.375 GM PREMIX 50 ML IV SCH ×2 (04:29→07:49)
[2017-09-24] MEDS: CHLORHEXIDINE GLUCONATE 2 % 1 PACK (2 CLOTHS) TOP SCH (04:30)
[2017-09-24] MEDS: TAMSULOSIN HCL 0.4 MG CAP PO SCH (07:45)
[2017-09-24] MEDS: FAMOTIDINE 20 MG TAB PO SCH (07:46)
[2017-09-24] MEDS: ASPIRIN 325 MG TAB PO SCH (07:46)
[2017-09-24 08:00] VITALS: BP 152/80; PULSE 73; RESP 18; TEMP 98; O2SAT 96
[2017-09-24] MEDS ORDERED: MULTIVITAMIN TAB PO SCH (09:00)
[2017-09-24] MEDS ORDERED: FINASTERIDE 5 MG TAB PO SCH (09:00)
[2017-09-24] MEDS ORDERED: AMOX875T2 PO (09:20)
--- NOTE | 2017-09-24 09:56 | HHI.PR ---
Subjective Subjective Notes Up to chair; feeling good No complaints Objective Vitals/I&O Vital Signs Date Time Temp Pulse Resp B/P (MAP) Pulse Ox O2 Delivery O2 Flow Rate FiO2 09/24/17 07:30 Room Air 09/24/17 00:00 97.8 75 17 113/63 (80) 96 09/23/17 07:00 3.00 Labs Date/Time Source Procedure Growth Status 09/21/17 22:55 Blood Peripheral Aerobic Blood Culture - Preliminary NO GROWTH IN 2 DAYS Resulted 09/21/17 22:55 Blood Peripheral Anaerobic Blood Culture - Preliminary NO GROWTH IN 2 DAYS Resulted 09/21/17 23:00 Nasal Washing Influenza Types A,B Antigen (STEVE) - Final NEGATIVE FOR FLU A AND B ANTIGEN.... Complete 09/22/17 08:00 Urine Random Urine Urine Culture - Final NO GROWTH IN 48 HOURS. Complete Radiology Last 48 hours Impressions Abdomen/Pelvis CT 09/22/17 0023 Signed Impressions: Service Date/Time: Friday, September 22, 2017 00:47 - CONCLUSION: 1. Peripancreatic inflammatory changes seen previously show some interval improvement. There is still some inflammatory stranding at the root of the mesentery, however. 2. In addition, there is now pericholecystic inflammatory changes and pericholecystic fluid with multiple gallstones are concerning for acute cholecystitis. 3. Diffuse hepatic fatty infiltration. 4. 4.1 cm left inguinal hernia only containing fat. 5. Bilateral renal cortical cysts. Mild diverticular disease of the descending colon without diverticulitis. Hipolito Michael MD Chest X-Ray 09/21/17 [id number] Signed Impressions: Service Date/Time: Thursday, September 21, 2017 22:52 - CONCLUSION: Stable examination with no acute cardiopulmonary process Hipolito Michael MD Cardiovascular: Regular Lungs: Clear Abdomen: Other (obese abdomen; lap sites c/d/i; non distended; minimal post op tenderness ) Extremities: No edema A/P Assessment and Plan 71 year old male POD2 lap ewa from septic cholecystitis -Tolerated regular diet -Continue antibiotics---transition to PO antibiotics -OOB and mobilize -Pain control -GS clear for DC -Patient to follow up with Dr. Cortes on Thursday at 9AM -Rx for Augmentin on chart; patient has pain rx from prior admission last week Rachelle Hoffman/[employer] September 24, 2017 09:56
[2017-09-24] MEDS ORDERED: AMOXICILLIN/CLAVULANATE K 875 MG TAB PO SCH (10:00)
[2017-09-24 11:50] VITALS: BP 145/73; PULSE 70; RESP 17; TEMP 98.1; O2SAT 95
--- NOTE | 2017-09-24 12:06 | HHI.PR ---
Subjective Remarks Patient says he is feeling well. Denies any chest pain shortness of breath. Denies any nausea or vomiting. Objective Vital Signs Date Time Temp Pulse Resp B/P (MAP) Pulse Ox O2 Delivery O2 Flow Rate FiO2 09/24/17 11:50 98.1 70 17 145/73 (97) 95 09/24/17 08:00 98.0 73 18 152/80 (104) 96 09/24/17 07:30 Room Air 09/24/17 00:00 97.8 75 17 113/63 (80) 96 09/23/17 21:37 Room Air 09/23/17 20:00 98.2 75 15 143/75 (97) 95 09/23/17 16:00 97.8 78 16 130/63 (85) 92 09/23/17 13:36 97.7 75 17 139/70 (93) 96 09/23/17 13:08 94 Room Air I/O 09/23/17 09/23/17 09/23/17 09/24/17 09/24/17 09/24/17 07:00 15:00 23:00 07:00 15:00 23:00 Intake Total 730 ml 480 ml 240 ml Output Total 750 ml 550 ml Balance -750 ml 180 ml 480 ml 240 ml Intake Oral 480 ml 480 ml 240 ml IV Total 250 ml Output Urine Total 750 ml 550 ml # Voids 3 2 # Bowel Movements 0 1 1 0 Result Diagram: 09/23/17 0600 09/23/17 0600 Objective Remarks GENERAL: Patient sitting up in chair. Appears comfortable. SKIN: Warm and dry. HEAD: Normocephalic. EYES: No scleral icterus. No injection or drainage. NECK: Supple, trachea midline. No JVD. CARDIOVASCULAR: Regular rate and rhythm without murmurs, gallops, or rubs. RESPIRATORY: Breath sounds equal bilaterally. No accessory muscle use. GASTROINTESTINAL: Abdomen soft, non-tender, nondistended. MUSCULOSKELETAL: No cyanosis, or edema. BACK: Nontender without obvious deformity. No CVA tenderness. A/P Assessment and Plan //Septic shock -resolved //Acute gangrenous cholecystitis. = Status post emergent cholecystectomy on 09/[address] Cortes. = Blood cultures -3 days. -Patient underwent cholecystectomy with resolution of sepsis. Continue Augmentin to complete treatment course. //Hypertension. Systolic blood pressures this morning in the 140s. Continue home regimen upon discharge. Restart lisinopril. //Acute gangrenous cholecystitis //Gallstone pancreatitis //Dirty urinalysis = negative culture -f/u Panculture. Broad-spectrum antibiotics with vancomycin and Zosyn -General surgery Dr. Cortes. Status post emergency cholecystectomy yesterday -See operative note -CT of the abdomen pelvis reviewed //History of TIA -Continue aspirin. //Fatty liver. Follow-up primary care as outpatient. //Acute on chronic kidney disease //BPH Creatinine 1.6 on admission, has resolved 1.29 on 09/23. = Initially held lisinopril, however can start tonight. Discharge Planning Discharge home with Augmentin to complete treatment course. Follow-up with surgery and primary care as outpatient. Monster Rodríguez MD September 24, 2017 12:06
--- NOTE | 2017-09-24 12:07 | HHI.DS ---
Discharge Summary Admission Date September 22, 2017 at 00:31 Discharge Date: September 24, 2017 Admitting Diagnosis Septic shock. Acute cholecystitis. Acute kidney injury. (1) Septic shock ICD Code: A41.9 - Sepsis, unspecified organism; R65.21 - Severe sepsis with septic shock Diagnosis: Principal Status: Acute (2) Acute cholecystitis ICD Code: K81.0 - Acute cholecystitis Diagnosis: Principal Status: Acute (3) Acute on chronic kidney failure ICD Code: N17.9 - Acute kidney failure, unspecified; N18.9 - Chronic kidney disease, unspecified Diagnosis: Principal (4) Pancreatitis ICD Code: K85.90 - Acute pancreatitis without necrosis or infection, unspecified Diagnosis: Principal (5) History of DVT (deep vein thrombosis) ICD Code: Z86.718 - History of DVT (deep vein thrombosis) Diagnosis: Secondary Status: Chronic (6) History of atrial fibrillation ICD Code: Z86.79 - History of atrial fibrillation Diagnosis: Secondary Status: Chronic (7) Hypertension ICD Code: I10 - Hypertension Diagnosis: Secondary Status: Chronic (8) Pericardial effusion ICD Code: I31.9 - Pericardial effusion Diagnosis: Secondary Status: Acute Procedures Cholecystectomy. Please see report. Brief History - From Admission Patient is a 71-year-old male with past medical history significant for hypertension, history of TIA, history of DVT, history of pericarditis with pericardial effusion in 2014, who was recently admitted to the [facility] from 09/16/2017 - 09/18/2017 with gallstone pancreatitis. Patient was discharged home to follow-up with primary care and gastroenterology. He presented to the [place] emergency department yesterday evening with shaking chills, generalized malaise and weakness. A CT scan of the abdomen done on 09/21/17 at [place] showed peripancreatic inflammatory changes seen previously show some interval improvement, still some inflammatory stranding at the root of the mesentery. Pericholecystic inflammatory changes and pericholecystic fluid with multiple gallstones are concerning for acute cholecystitis. Patient was given vancomycin and Zosyn single dose, received 3 L normal saline bolus. Remained hypotensive so Dr. Felix placed femoral central line and was started on Levophed. [facility] evaluation and surgical consult I evaluated the patient in the [facility]. Patient looks acutely ill moderate right upper quadrant tenderness. He still requiring 4 mcg/min of Levophed. WBC count has increased from 10.2 to 14.9 with left shift. General surgery had been consulted for cholecystectomy evaluation. Placed on scheduled vancomycin and Zosyn. Keep n.p.o. additional 1 L normal saline bolus ordered CBC/BMP: 09/23/17 0600 09/23/17 0600 Significant Findings Laboratory Tests Test 09/21/17 15:50 09/21/17 22:50 09/22/17 07:05 09/22/17 08:00 Neutrophils (%) (Auto) 92.9 % (16.0-70.0) 86.4 % (16.0-70.0) Lymphocytes (%) (Auto) 1.6 % (9.0-44.0) 3.1 % (9.0-44.0) Neutrophils # (Auto) 9.4 TH/MM3 (1.8-7.7) 12.9 TH/MM3 (1.8-7.7) Lymphocytes # (Auto) 0.2 TH/MM3 (1.0-4.8) 0.5 TH/MM3 (1.0-4.8) Prothrombin Time 12.0 SEC (9.8-11.6) Activated Partial Thromboplast Time 30.3 SEC (24.3-30.1) Blood Urea Nitrogen 27 MG/DL (7-18) 24 MG/DL (7-18) Creatinine 1.60 MG/DL (0.60-1.30) 1.64 MG/DL (0.60-1.30) Random Glucose 129 MG/DL (74-106) 125 MG/DL (74-106) Albumin 2.6 GM/DL (3.4-5.0) 2.3 GM/DL (3.4-5.0) Alkaline Phosphatase 221 U/L (45-117) 179 U/L (45-117) Aspartate Amino Transf (AST/SGOT) 71 U/L (15-37) 87 U/L (15-37) Alanine Aminotransferase (ALT/SGPT) 178 U/L (12-78) 159 U/L (12-78) Total Bilirubin 2.0 MG/DL (0.2-1.0) Sodium Level 135 MEQ/L (136-145) Estimat Glomerular Filtration Rate 43 ML/MIN (>89) 42 ML/MIN (>89) Total Creatine Kinase 318 U/L (39-308) Troponin I 0.07 NG/ML (0.02-0.05) White Blood Count 14.9 TH/MM3 (4.0-11.0) Red Blood Count 4.08 MIL/MM3 (4.50-5.90) Hemoglobin 12.5 GM/DL (13.0-17.0) Hematocrit 37.9 % (39.0-51.0) Monocytes (%) (Auto) 10.0 % (0.0-8.0) Monocytes # (Auto) 1.5 TH/MM3 (0-0.9) Total Protein 5.8 GM/DL (6.4-8.2) Calcium Level 7.9 MG/DL (8.5-10.1) Phosphorus Level 5.3 MG/DL (2.5-4.9) Urine Turbidity HAZY (CLEAR) Urine Protein 30 mg/dL (NEG-TRACE) Urine Ketones 10 mg/dL (NEG) Urine Occult Blood MOD (NEG) Urine WBC 17 /hpf (0-5) Urine Bacteria RARE /hpf (NONE) Urine Mucus FEW /lpf (OCC) Test 09/23/17 06:00 Red Blood Count 3.89 MIL/MM3 (4.50-5.90) Hemoglobin 12.3 GM/DL (13.0-17.0) Hematocrit 36.1 % (39.0-51.0) Neutrophils (%) (Auto) 90.9 % (16.0-70.0) Lymphocytes (%) (Auto) 2.9 % (9.0-44.0) Neutrophils # (Auto) 8.5 TH/MM3 (1.8-7.7) Lymphocytes # (Auto) 0.3 TH/MM3 (1.0-4.8) Blood Urea Nitrogen 23 MG/DL (7-18) Random Glucose 124 MG/DL (74-106) Total Protein 5.7 GM/DL (6.4-8.2) Albumin 2.2 GM/DL (3.4-5.0) Calcium Level 7.6 MG/DL (8.5-10.1) Alkaline Phosphatase 150 U/L (45-117) Aspartate Amino Transf (AST/SGOT) 242 U/L (15-37) Alanine Aminotransferase (ALT/SGPT) 278 U/L (12-78) Chloride Level 108 MEQ/L (98-107) Estimat Glomerular Filtration Rate 55 ML/MIN (>89) Imaging Last Impressions Abdomen/Pelvis CT 09/22/17 0023 Signed Impressions: Service Date/Time: Friday, September 22, 2017 00:47 - CONCLUSION: 1. Peripancreatic inflammatory changes seen previously show some interval improvement. There is still some inflammatory stranding at the root of the mesentery, however. 2. In addition, there is now pericholecystic inflammatory changes and pericholecystic fluid with multiple gallstones are concerning for acute cholecystitis. 3. Diffuse hepatic fatty infiltration. 4. 4.1 cm left inguinal hernia only containing fat. 5. Bilateral renal cortical cysts. Mild diverticular disease of the descending colon without diverticulitis. Hipolito Michael MD Renal Ultrasound 09/22/17 0000 Signed Impressions: Service Date/Time: Friday, September 22, 2017 11:59 - CONCLUSION: 1. Bilateral simple appearing renal cysts. 2. No evidence for obstructive uropathy. Satny Hu MD Chest X-Ray 09/21/17 2245 Signed Impressions: Service Date/Time: Thursday, September 21, 2017 22:52 - CONCLUSION: Stable examination with no acute cardiopulmonary process Hipolito Michael MD Hospital Course //Septic shock -resolved //Acute gangrenous cholecystitis. = Status post emergent cholecystectomy on 09/[address] Cortes. = Blood cultures -3 days. -Patient underwent cholecystectomy with resolution of sepsis. Continue Augmentin to complete treatment course. //Hypertension. Systolic blood pressures this morning in the 140s. Continue home regimen upon discharge. Restart lisinopril. //Acute gangrenous cholecystitis //Gallstone pancreatitis //Dirty urinalysis = negative culture -f/u Panculture. Broad-spectrum antibiotics with vancomycin and Zosyn -General surgery Dr. Cortes. Status post emergency cholecystectomy yesterday -See operative note -CT of the abdomen pelvis reviewed //History of TIA -Continue aspirin. //Fatty liver. Follow-up primary care as outpatient. //Acute on chronic kidney disease //BPH Creatinine 1.6 on admission, has resolved 1.29 on 09/23. = Initially held lisinopril, however can start tonight. Discharge Planning Discharge home with Augmentin to complete treatment course. Follow-up with surgery and primary care as outpatient. Pt Condition on Discharge: Good Discharge Disposition: Discharge Home Discharge Time: > 30 minutes Discharge Instructions DIET: Follow Instructions for: Heart Healthy Diet Activities you can perform: Regular-No Restrictions Activities to Avoid: Lifting/Bending Follow up Referrals: PCP Follow-up - 1 Week with Justin Kaye MD Surgical - 09/28/17 with Konrad Cortes MD Appt set for ThursdaySeptember 28 at 9AM New Medications: Amoxicillin-Clavulanate (Amoxicillin-Clavulanate) 875-125 mg Tab 875 MG PO Q12HR for Infection for 7 Days, TAB not for use in CrCl <30 mL/minute Continued Medications: Aspirin (Aspirin) 325 Mg Tab 325 MG PO DAILY, #30 TAB 0 Refills Finasteride (Finasteride) 5 Mg Tab 5 MG PO DAILY for Manage Prostate Problems, #30 TAB 0 Refills Do not crush. Hydrocodone/Acetaminophen (Hydrocodone-Acetamin 10-325 mg) 10 Mg-325 Mg Tablet 1 TAB PO Q6H PRN for PAIN SCALE 6-10 for 3 Days, #12 TAB Lisinopril (Lisinopril) 20 Mg Tab 20 MG PO BID, #30 TAB 0 Refills Multiple Vitamin (Multi-Vitamin Daily) 1 Tab Tab 1 TAB PO DAILY for Nutritional Supplement, TAB 0 Refills Tamsulosin (Tamsulosin) 0.4 Mg Cap 0.4 MG PO BID for Manage Prostate Problems, #30 CAP 0 Refills Discontinued Medications: Indomethacin (Indomethacin) 25 Mg Cap 25 MG PO DAILY, CAP 0 Refills Take with food, milk, or antacids to decrease stomach adverse effects. Monster Rodríguez MD September 24, 2017 12:07
== END 2017-09-24 12:41 | disposition home or self-care (01) | DRG 853 ==
LOC: PHED 22:38 → PHEDA 09-22 00:31 → N03B 09-22 03:01 → N07A 09-23 12:40
PROVIDERS: ADMIT Internal Medicine; ATTEND Internal Medicine
PROC: 0FT44ZZ Resection of Gallbladder, Percutaneous Endoscopic Approach (ICD-10-PCS; principal; 2017-09-21)
PROC: 0WQF3ZZ Repair Abdominal Wall, Percutaneous Approach (ICD-10-PCS; 2017-09-21)
PROC: 02HV33Z Insertion of Infusion Device into Superior Vena Cava, Percutaneous Approach (ICD-10-PCS; 2017-09-21)
DX: R65.21 Severe sepsis with septic shock (principal); N17.9 Acute kidney failure, unspecified; A41.9 Sepsis, unspecified organism; K85.10 Biliary acute pancreatitis without necrosis or infection; Z68.41 Body mass index [BMI] 40.0-44.9, adult; K80.00 Calculus of gallbladder with acute cholecystitis without obstruction; I31.9 Disease of pericardium, unspecified; N39.0 Urinary tract infection, site not specified; E66.01 Morbid (severe) obesity due to excess calories; I48.91 Unspecified atrial fibrillation; K42.9 Umbilical hernia without obstruction or gangrene; G47.30 Sleep apnea, unspecified; N18.9 Chronic kidney disease, unspecified; I12.9 Hypertensive chronic kidney disease with stage 1 through stage 4 chronic kidney disease, or unspecified chronic kidney disease; E78.00 Pure hypercholesterolemia, unspecified; K76.0 Fatty (change of) liver, not elsewhere classified; N40.0 Benign prostatic hyperplasia without lower urinary tract symptoms; K59.00 Constipation, unspecified; M19.90 Unspecified osteoarthritis, unspecified site; Z96.643 Presence of artificial hip joint, bilateral; Z96.651 Presence of right artificial knee joint; Z86.73 Personal history of transient ischemic attack (TIA), and cerebral infarction without residual deficits; Z86.718 Personal history of other venous thrombosis and embolism
CPT/HCPCS: 36556; 71045; 74177; 76775; 80053; 81001; 82550; 82552; 83605; 83690; 83735; 84100; 84132; 84484; 85025; 85610; 85730; 86850; 86900; 86901; 87040; 87086; 87641; 87804; 88304; 93005; 96360; J0131; J1100; J1644; J2250; J2370; J2405; J2543; J2710; J3010; J3370; J7030; J7050; Q9967